=== PATIENT | male | born 1995 | race Two or more races ===

== ENCOUNTER 2025-03-06 18:36 | Inpatient (IN) | payer OTHER, MEDICAID, MEDICARE, SELFPAY ==
[2025-03-06 18:56] VITALS: BP 119/81; PULSE 102; RESP 18; TEMP 36.8; O2SAT 96; BMI 29.8
--- NOTE | 2025-03-06 19:11 | PD.EDNV ---
Nausea/Vomit./Diarrhea-RME/HPI General Chief complaint: Nausea/Vomiting/Diarrhea Stated complaint: WEAKNESS, DIARRHEA X3 DAYS Time Seen by Provider: 03/06/25 18:55 Arrival date/time: 03/06/25 18:36 RME / HPI RME / HPI Narrative: 30-year-old male presents to the ED with complaint of diarrhea for the past 4 days. He is also feeling weakness and fatigue. He is having 6-7 bouts of diarrhea daily, however today he has had none. Mother is concerned about his electrolytes as he has had hypernatremia previously. He denies any fever or chills, nausea or vomiting, upper respiratory complaints, urinary frequency or burning with urination. MD complaint: diarrhea Onset (ago): day(s) (For) Associated Abdominal Pain: No Location of pain: other (None) Radiation: other (None) Consistency: now resolved Exacerbating factors: none Related Data Home Medications ?Medication ?Instructions ?Recorded ?Confirmed famotidine 20 mg tablet (Pepcid) 20 mg PO QDAY GERD #0 tabs 11/11/14 03/18/19 potassium chloride 20 mEq 20 meq PO BID SUPPLEMENT #0 tabs 01/28/15 08/18/24 tablet,extended release(part/cryst) metoprolol tartrate 25 mg tablet 12.5 mg PO QDAY HBP #0 tabs 05/05/15 03/18/19 levetiracetam 1,000 mg tablet 1,000 mg PO BID Seizures #0 tabs 06/07/15 08/18/24 (Keppra) warfarin 3 mg tablet (Coumadin) 3 mg PO DAILY Blood Thinner #0 tabs 10/08/15 08/18/24 allopurinol 300 mg tablet 300 mg PO QDAY #0 tabs 04/11/16 08/18/24 (Zyloprim) atorvastatin 20 mg tablet 20 mg PO QPM 08/18/24 08/18/24 desmopressin 0.1 mg tablet 0.4 mg PO TID 08/18/24 08/18/24 mirtazapine 30 mg tablet 30 mg PO HS 08/18/24 08/18/24 Allergies Allergy/AdvReac Type Severity Reaction Status Date / Time No Known Allergies Allergy Verified 08/17/24 19:19 Course Quality Measures none Orders Category Date Time Status In and Out Catheter X1 Care 03/06/25 20:44 Active CBC Stat Lab 03/06/25 19:28 Completed Comprehensive Metabolic Panel Stat Lab 03/06/25 19:28 Completed Urinalysis Stat Lab 03/06/25 19:13 Ordered Vital Signs Vital signs: Vital Signs Temperature 98.2 F 03/06/25 18:56 Pulse Rate 102 H 03/06/25 18:56 Respiratory Rate 18 03/06/25 18:56 Blood Pressure 119/81 03/06/25 18:56 Pulse Oximetry (%) 96 03/06/25 18:56 Oxygen Delivery Method Room Air 03/06/25 18:56 Nausea/Vomiting/Diarrhea Patient data External records reviewed:: Other (specify) Clinical information provided by:: patient and parent Social determinants that could affect healthcare access:: none How is presenting disease/condition affected by chronic disease/condition?: exacerbated by Evaluation data The following diagnostics were reviewed and interpreted by me:: lab results Lab and/or radiology exams considered but not ordered:: N/A Medications / Prescriptions Medications / Prescriptions considered but not ordered:: N/A Discharge Plan Prescriptions/Referrals Prescriptions/Med Rec: No Action famotidine [Pepcid] 20 MG tablet 20 mg PO QDAY Qty: 0 Patient Comments: TO SUPPRESS GASTRIC ACID SECRETION potassium chloride 20 MEQ tablet,ER particles/crystals 20 meq PO BID Qty: 0 metoprolol tartrate 25 MG tablet 12.5 mg PO QDAY Qty: 0 levetiracetam [Keppra] 1,000 MG tablet 1,000 mg PO BID Qty: 0 warfarin [Coumadin] 3 MG tablet 3 mg PO DAILY Qty: 0 allopurinol [Zyloprim] 300 MG tablet 300 mg PO QDAY Qty: 0 desmopressin 0.1 mg tablet 0.4 mg PO TID Patient Comments: TAKE 4 TABLETS BY MOUTH 3 TIMES A DAY mirtazapine 30 mg tablet 30 mg PO HS atorvastatin 20 mg tablet 20 mg PO QPM Patient Comments: TAKE 1 TABLET BY MOUTH EVERYDAY AT BEDTIME Referrals: No Primary/Family,Physician [Primary Care Provider] - In 1 week Patient/Caregiver Discharge Instructions Print Language: Tamazight
[2025-03-06 19:36] LABS: Basophils % (Auto) 0 % (0-2.5); Eosinophils # (Auto) 0.1 Thou/mm3 (0.0-0.5); Eosinophils % (Auto) 2 % (0-10); Hematocrit 47.2 % (41.0-53.0); Hemoglobin 16.7 g/dL (13.5-16.0); Immature Granulocytes % (Auto) 1 % (0-0); Immature Granulocytes Auto 0.06 Thou/mm3 (0.00-0.00); Lymphocytes % (Auto) 43 % (10-50); Mean Corpuscular HGB Conc 35.4 g/dl (31.0-37.0); Mean Corpuscular Hemoglobin 30.4 pg (25.0-35.0); Mean Corpuscular Volume 86 fL (80-100); Monocytes # (Auto) 0.7 Thou/mm3 (0.0-0.8); Monocytes % (Auto) 8 % (0-12); Neutrophils # (Auto) 4.3 Thou/mm3 (1.8-7.7); Neutrophils % (Auto) 47 % (37-80); Nucleated Red Blood Cell % 0 /100 WBC (0); Platelet Count 174 Thou/mm3 (140-440); RDW Standard Deviation 42.5 fL (35.1-43.9); White Blood Count 9.2 Thou/mm3 (3.8-10.6)
[2025-03-06 19:56] LABS: Alanine Aminotransferase 85 U/L (10-49); Albumin, Serum 4.8 gm/dL (3.5-5.0); Albumin/Globulin Ratio 1.5 (1.2-2.2); Alkaline Phosphatase 80 U/L (46-116); Anion Gap 9 (7-16); Aspartate Amino Transferase 36 U/L (0-34); BUN/Creatinine Ratio 14 Ratio (12-20); Bilirubin,Total 0.6 mg/dL (0.3-1.2); Blood Urea Nitrogen 22 mg/dL (9-23); Carbon Dioxide 21.3 mMol/L (20.0-31.0); Chloride 125 mMol/L (98-107); Creatinine (Component) 1.6 mg/dL (0.6-1.3); Estimated Creatinine Clearance 76.4 mL/min (>60); Globulin 3.2 gm/dL (2.3-3.5); Glucose 97 mg/dL (74-106); Osmolality,Calculated 310 (275-295); Potassium 3.4 mMol/L (3.4-5.1); Sodium 155 mMol/L (136-145); eGFR 58 See Note
[2025-03-06 21:30] VITALS: BP 121/84; O2SAT 98
[2025-03-06 21:32] VITALS: BP 121/84; PULSE 93; RESP 18; TEMP 36.4; O2SAT 98
--- NOTE | 2025-03-06 21:56 | PD.EDADULT ---
ED General RME/HPI General Chief complaint: Nausea/Vomiting/Diarrhea Stated complaint: WEAKNESS, DIARRHEA X3 DAYS Time Seen by Provider: 03/06/25 18:55 Arrival date/time: 03/06/25 18:36 RME / HPI RME / HPI narrative: This patient is a 30-year-old male with past medical history of brain tumor s/p resection complicated with diabetes insipidus on desmopressin, previous PE 3 to 4 years ago on warfarin, Hx of seizures, GERD, hypertension presented to the ED on 03/06/2025 with chief complaint of 4-day history of diarrhea without blood foul-smelling mostly watery in consistency around more than 7-10 bowel movements in a day. He denied any fever/chills, abdominal discomfort, nausea, vomiting, headache or lightheadedness or burning in the urine. Diarrhea is not related with a food intake. He has been not drinking enough water as well. He usually have a lot of urine output however has been having decreased urine output lately. Yesterday, he saw his primary care doctor who started her on azithromycin which he took 2 pills. However due to uncontrolled mucus stools patient came to the ER with her mother on the bedside. He reported to feel tired and fatigued out today. Vitals showed stable blood pressure and he was afebrile saturating well on room air. Labs were significant for erythrocytosis hemoglobin 16.7 stable white count. CHEM panel revealed chronic hypernatremia with sodium 155, chloride 125 mild hypokalemia potassium 3.4, mild STACEY BUN 22 creatinine 1.6 GFR 58 with baseline creatinine 1.2 from September 2024. Osmolality 310. Mildly elevated liver enzymes AST 36 and ALT 85. PMH: History of brain tumor, seizures, hypertension, GERD, PE SX: Tumor resection, thrombectomy SH: Denies smoking, drinking alcohol. No history of illicit drug use Allergies: NKDA Home medications: Keppra 1 g twice daily, allopurinol 300 mg once daily, desmopressin 0.4 mg 3 times a day, potassium 20 mEq, atorvastatin 20 mg and warfarin 3 mg daily Patient's free water deficit is around 3.1 L considering goal of sodium 147 mEq in first 24 hours. We ordered 1 L bolus of LR, ordered CT abdomen pelvis without contrast to evaluate abdominal pathology and urine electrolytes with strict LUCI's. Will perform sodium checks every 4 hourly with next check at 23:30. Patient is likely has acute on chronic hypernatremia and hyperchloremia likely related to dehydration due to possible GI infection in the setting of central diabetes insipidus.Hospitalist team was called to admit the patient for acute on ch hypernatremia. MD complaint: Loose stools/diarrhea Onset (ago): day(s) (4) Exacerbating factors: none Associated symptoms: malaise and weakness Treatments prior to arrival: other (Azithromycin) Related Data Home Medications ?Medication ?Instructions ?Recorded ?Confirmed famotidine 20 mg tablet (Pepcid) 20 mg PO QDAY GERD #0 tabs 11/11/14 03/18/19 potassium chloride 20 mEq 20 meq PO BID SUPPLEMENT #0 tabs 01/28/15 08/18/24 tablet,extended release(part/cryst) metoprolol tartrate 25 mg tablet 12.5 mg PO QDAY HBP #0 tabs 05/05/15 03/18/19 levetiracetam 1,000 mg tablet 1,000 mg PO BID Seizures #0 tabs 06/07/15 08/18/24 (Keppra) warfarin 3 mg tablet (Coumadin) 3 mg PO DAILY Blood Thinner #0 tabs 10/08/15 08/18/24 allopurinol 300 mg tablet 300 mg PO QDAY #0 tabs 04/11/16 08/18/24 (Zyloprim) atorvastatin 20 mg tablet 20 mg PO QPM 08/18/24 08/18/24 desmopressin 0.1 mg tablet 0.4 mg PO TID 08/18/24 08/18/24 mirtazapine 30 mg tablet 30 mg PO HS 08/18/24 08/18/24 Allergies Allergy/AdvReac Type Severity Reaction Status Date / Time No Known Allergies Allergy Verified 03/06/25 22:31 Review of Systems Review of Systems Systems Reviewed: All systems reviewed, normal except as documented Past Medical History Past Medical History NEUROLOGIC: Positive Neurological Disorders and Brain Tumor CARDIAC: Positive Hypercholesterolemia and Hypertension; Negative Cardiac Disorders or Congestive Heart Failure RESPIRATORY: Negative Respiratory Disorders, Chronic Obstructive Pulmonary Disease (COPD) or Asthma GENITOURINARY: Positive Renal Disease ENDOCRINE: Positive Endocrine Disorders and Diabetes Mellitus Type 2 (diabetes insipidus); Negative Diabetes Mellitus Type 1 HEMATOLOGIC: Negative Sickle Cell Disease OTHER HISTORY: Negative Blood Transfusions Surgical History OTHER SURGICAL HX: Brain Sx Social History SMOKING STATUS: Never smoker ED Exam Narrative Physical exam: GENERAL APPEARANCE: AxOx4, obese male in no acute distress. HEENT: NC, AT. Dry mucous membrane. EOMI, clear conjunctiva, oropharynx clear. NECK: Supple without lymphadenopathy. No stiffness or restricted ROM. HEART: Regular rate and regular rhythm, normal S1/S2, no m/r/g LUNGS: CTAB, moving air well. No crackles or wheezes are heard. ABDOMEN: Soft, nontender, nondistended with good bowel sounds heard. BACK: No CVAT, no obvious deformity. EXTREMITIES: Without cyanosis, clubbing or edema. NEUROLOGICAL: Grossly nonfocal. Alert and oriented, moving all 4 extremities. CN not formally tested but appear grossly intact. Observed to ambulate with normal gait. Skin: Warm and dry without any rash. Psych: Appropriate mood and affect Course Quality Measures none Orders Category Date Time Status COVID-19 Screening Questionnaire NOW Care 03/06/25 22:27 Active Decision to Admit X1 Care 03/06/25 22:27 Active In and Out Catheter X1 Care 03/06/25 20:44 Active Strict Intake and Output Routine Care 03/06/25 22:[address] abdomen pelvis wo con Stat Exams 03/06/25 22:12 Ordered CBC Stat Lab 03/06/25 19:28 Completed Comprehensive Metabolic Panel Stat Lab 03/06/25 19:28 Completed Electrolytes, Urine Random Stat Lab 03/06/25 22:18 Ordered INR [Prothrombin Time with INR] Stat Lab 03/06/25 22:35 Ordered Mag [Magnesium] Routine Lab 03/06/25 22:18 Ordered PTT [Partial Thromboplastin Time] Stat Lab 03/06/25 22:35 Ordered Sodium Q4H Lab 03/06/25 23:30 Ordered Sodium Q4H Lab 03/07/25 03:30 Ordered Sodium Q4H Lab 03/07/25 07:30 Ordered Sodium Q4H Lab 03/07/25 11:30 Ordered Sodium Q4H Lab 03/07/25 15:30 Ordered Urinalysis Stat Lab 03/06/25 19:13 Ordered Potassium Chloride [K-Dur] Med 03/06/25 22:18 Discontinued 40 meq PO X1 ONE Ringers Lactated 1000 ml [Lactated Ringers] 1,000 ml Med 03/06/25 22:15 Active IV 999 mls/hr Vital Signs Vital signs: Vital Signs Temperature 98.2 F 03/06/25 18:56 Pulse Rate 102 H 03/06/25 18:56 Respiratory Rate 18 03/06/25 18:56 Blood Pressure 119/81 03/06/25 18:56 Pulse Oximetry (%) 96 03/06/25 18:56 Oxygen Delivery Method Room Air 03/06/25 18:56 Discharge Plan Plan Patient Disposition: Admit Acute Care w/in Hospital Prescriptions/Referrals Prescriptions/Med Rec: No Action famotidine [Pepcid] 20 MG tablet 20 mg PO QDAY Qty: 0 Patient Comments: TO SUPPRESS GASTRIC ACID SECRETION potassium chloride 20 MEQ tablet,ER particles/crystals 20 meq PO BID Qty: 0 metoprolol tartrate 25 MG tablet 12.5 mg PO QDAY Qty: 0 levetiracetam [Keppra] 1,000 MG tablet 1,000 mg PO BID Qty: 0 warfarin [Coumadin] 3 MG tablet 3 mg PO DAILY Qty: 0 allopurinol [Zyloprim] 300 MG tablet 300 mg PO QDAY Qty: 0 desmopressin 0.1 mg tablet 0.4 mg PO TID Patient Comments: TAKE 4 TABLETS BY MOUTH 3 TIMES A DAY mirtazapine 30 mg tablet 30 mg PO HS atorvastatin 20 mg tablet 20 mg PO QPM Patient Comments: TAKE 1 TABLET BY MOUTH EVERYDAY AT BEDTIME Referrals: No Primary/Family,Physician [Primary Care Provider] - In 1 week Problem List Clinical Impression: Diarrhea, Acute renal insufficiency, 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
--- NOTE | 2025-03-06 22:12 | XR_ITS ---
Examination: CT abdomen and pelvis without contrast. Coronal 3-D reconstructions. Sagittal 2-D reconstructions. Date and time of exam:March 06, 2020 5:11 PM Comparison August 17, 2024 INDICATIONS: Diarrhea abdominal pain beginning 3 days ago CTDI: vol (mGy): 19.66 DLP: (mGycm): 598 Technique: Axial images of the abdomen have been obtained, 3 mm slice thickness Intravenous contrast material has not been administered. Low dose protocols were performed. One or more of the following dose reduction techniques were used; automated exposure control, adjustment of the mA and/or KV according to patient size, use of iterative reconstruction technique. Findings: No focal liver or splenic lesions Absent gallbladder No pancreatic or adrenal mass No renal or ureteral calculi, no hydronephrosis IVC filter is satisfactory position Aorta normal size Normal appendix No bowel obstruction No diverticulitis Normal seminal vesicles Normal prostate Osseous structures intact IMPRESSION: No acute process in the abdomen or pelvis
[2025-03-06 22:27] VITALS: BP 107/88; PULSE 95; RESP 18; TEMP 36.4; O2SAT 99
[2025-03-06] MEDS: POTASSIUM CHLORIDE 20 mEq TABCR 40 MEQ PO (22:31)
[2025-03-06] MEDS: RINGERS LACTATED 1000 ML 1,000 ML 999 ML IV (22:31)
[2025-03-06 22:37] LABS: Collection Type, Urine Clean Catch
[2025-03-06 22:50] LABS: Bilirubin,Urine Negative (Negative); Blood,Urine Trace (Negative); Calcium Oxalate Crystals,Urine Rare; Clarity,Urine Clear (Clear/Hazy); Color,Urine Yellow (Lt Yel-Yel); Glucose, Urine Negative (Negative); Ketones,Urine Negative (Negative); Leukocyte Esterase,Urine Negative (Negative); Nitrite,Urine Negative (Negative); Protein,Urine 1+ (Neg - Trace); RBC,Urine 7 /hpf (0-3); Specific Gravity,Urine 1.046 (1.001-1.035); Squamous Epithelial Cell,Urine 1 /hpf (0-5); Urobilinogen,Urine Negative mg/dL (0.0-1.0); WBC,Urine 2 /hpf (0-5)
[2025-03-06 23:24] LABS: Magnesium 1.7 mg/dL (1.6-2.6)
[2025-03-06 23:26] LABS: Potassium,Urine Random 156 mMol/L (12-62); Sodium,Urine Random < 15.0 mMol/L (20.0-110.0)
[2025-03-06 23:39] LABS: INR 3.9 (0.9-1.3); Partial Thromboplastin Time 40.6 Seconds (22.0-36.0)
--- NOTE | 2025-03-06 23:41 | ESHP_ITS ---
Documentation for date of: 03/06/25 [facility] History of Present Illness History of present illness: Mr Simon is a 30-year-old male with past medical history of brain tumor s/p resection complicated with diabetes insipidus on desmopressin, previous PE 3 to 4 years ago on warfarin and status post IVC filter, Hx of seizures, GERD, hypertension presented to the ED on 03/06/2025 with chief complaint of 4-day history of diarrhea without blood foul-smelling mostly watery in consistency around more than 7-10 bowel movements in a day. He denied any fever/chills, abdominal discomfort, nausea, vomiting, headache or lightheadedness or burning in the urine. Diarrhea is not related with a food intake. He has been not drinking enough water as well. He usually have a lot of urine output however has been having decreased urine output lately. Yesterday, he saw his primary care doctor who started her on azithromycin which he took 2 pills. However due to uncontrolled mucus stools patient came to the ER with her mother on the bedside. He reported to feel tired and fatigued out today. Patient denies any other complaints of chest pain palpitations shortness of breath and headache Vitals showed stable blood pressure and he was afebrile saturating well on room air. Labs were significant for erythrocytosis hemoglobin 16.7 stable white count. CHEM panel revealed chronic hypernatremia with sodium 155, chloride 125 mild hypokalemia potassium 3.4, mild STACEY BUN 22 creatinine 1.6 GFR 58 with baseline creatinine 1.2 from September 2024. Osmolality 310. Mildly elevated liver enzymes AST 36 and ALT 85. Review of Systems Review of Systems Narrative Review of Systems: ROS: -CONSTITUTIONAL: Denies weight loss, fever and chills. -HEENT: Denies changes in vision and hearing. -RESPIRATORY: Denies SOB and cough. -CV: Denies palpitations and Chest Pain. -GI: Denies abdominal pain, nausea, vomiting,constipation and positive for diarrhea. -: Denies dysuria and urinary frequency. -MSK: Denies myalgia and joint pain. -SKIN: Denies rash and pruritus. -NEUROLOGICAL: Denies headache and syncope. -PSYCHIATRIC: Denies recent changes in mood. Denies anxiety and depression. Past Medical History Past Medical History Comments PMH COMMENT: PMH: History of brain tumor, seizures, hypertension, GERD, PE SX: Tumor resection, thrombectomy SH: Denies smoking, drinking alcohol. No history of illicit drug use Allergies: NKDA Home medications: Keppra 1 g twice daily, allopurinol 300 mg once daily, desmopressin 0.4 mg 3 times a day, potassium 20 mEq, atorvastatin 20 mg and warfarin 3 mg daily Exam Vital Signs Temp Pulse Resp BP Pulse Ox O2 Del Method 97.6 F 95 18 107/88 H 99 Room Air 03/06/25 22:27 03/06/25 22:27 03/06/25 22:27 03/06/25 22:27 03/06/25 22:27 03/06/25 22:27 Results: Labs 03/06/25 19:28 03/07/25 04:17 Labs: Short CBC 03/06/25 Range/Units 19:28 WBC 9.2 (3.8-10.6) Thou/mm3 Hgb 16.7 H (13.5-16.0) g/dL Hct 47.2 (41.0-53.0) % Plt Count 174 (140-440) Thou/mm3 BMP 03/06/25 19:28 Sodium 155 H Potassium 3.4 Chloride 125 H* Carbon Dioxide 21.3 BUN 22 Creatinine 1.6 H Glucose 97 Calcium 9.0 Liver Function 03/06/25 Range/Units 19:28 Total Bilirubin 0.6 (0.3-1.2) mg/dL AST 36 H (0-34) U/L ALT 85 H (10-49) U/L Alkaline Phosphatase 80 (46-116) U/L Albumin 4.8 (3.5-5.0) gm/dL Urine 03/06/25 Range/Units 22:30 Urine Color Yellow (Lt Yel-Yel) Urine Clarity Clear (Clear/Hazy) Urine pH 6.0 (5.0-7.0) Ur Specific [place] 1.046 H (1.001-1.035) Urine Protein 1+ A (Neg - Trace) Urine Glucose (UA) Negative (Negative) Quality Measures Quality Measures none Medications Home Medications and Allergies Home Medications ?Medication ?Instructions ?Recorded ?Confirmed ?Type famotidine 20 mg tablet (Pepcid) 20 mg PO QDAY GERD #0 tabs 11/11/14 03/18/19 History potassium chloride 20 mEq 20 meq PO BID SUPPLEMENT #0 tabs 01/28/15 08/18/24 History tablet,extended release(part/cryst) metoprolol tartrate 25 mg tablet 12.5 mg PO QDAY HBP # 0 tabs 05/05/15 03/18/19 History levetiracetam 1,000 mg tablet 1,000 mg PO BID Seizures #0 tabs 06/07/15 08/18/24 History (Keppra) warfarin 3 mg tablet (Coumadin) 3 mg PO DAILY Blood Th inner #0 tabs 10/08/15 08/18/24 History allopurinol 300 mg tablet 300 mg PO QDAY #0 tabs 04/1108/18/24 History (Zyloprim) atorvastatin 20 mg tablet 20 mg PO QPM 08/18/24 History desmopressin 0.1 mg tablet 0.4 mg PO TID 08/18/2408/04 History mirtazapine 30 mg tablet 30 mg PO HS 08/18/24 4 History Allergies Allergy/AdvReac Type Severity Reaction Status Date / Time No Known Allergies Allergy Verified 03/06/25 22:31 Visit Medications Acetaminophen (Acetaminophen 325 Mg Tablet) 650 mg PO Q6H PRN PRN Reason: Pain (1-3) & Fever >101.5 Stop: 04/05/25 23:19 Allopurinol (Allopurinol 100 Mg Tablet) 300 mg PO QDAY BHARAT Stop: 04/06/25 08:59 Atorvastatin Calcium (Atorvastatin Calcium 20 Mg Tablet) 20 mg PO HS BHARAT Stop: 04/06/25 20:59 Levetiracetam (Levetiracetam 250 Mg Tablet) 1,000 mg PO BID BHARAT Stop: 04/05/25 23:29 Mirtazapine (Mirtazapine 15 Mg Tablet) 30 mg PO HS BHARAT Stop: 04/06/25 20:59 Non-Formulary Medication (Desmopressin) 0.4 mg PO TID BHARAT Stop: 04/06/25 05:59 Ondansetron HCl (Ondansetron Inj 2 Mg/Ml Inj 2 Ml) 4 mg IV Q6H PRN; Protocol PRN Reason: NAUSEA OR VOMITING Stop: 04/05/25 23:19 Sennosides (Senna Tablet) 1 tab PO QDAY PRN; Protocol PRN Reason: constipation Stop: 04/05/25 23:19 Warfarin Sodium (Warfarin 1 Mg Tablet) 3 mg PO QDAY@1200 BHARAT Stop: 03/21/25 11:59 Discontinued Medications Heparin Sodium (Porcine) (Heparin Sod Inj 5000 Unit/Ml Vial) 5,000 unit SC Q12H [facility] Stop: 03/20/25 23:29 Lactated Ringer's (Lactated Ringers) 1,000 mls @ 999 mls/hr IV .Q1H1M ONE Stop: 03/06/25 23:15 Last Admin: 03/06/25 22:31 Dose: 999 mls/hr Potassium Chloride (Potassium Chloride 20 Meq Tabcr) 40 meq PO X1 ONE Stop: 03/06/25 22:19 Last Admin: 03/06/25 22:31 Dose: 40 meq Assessment & Plan Plan Assessment and plan: Summary: Mr Simon is a 30-year-old male with past medical history of brain tumor s/p resection complicated with diabetes insipidus on desmopressin, previous PE 3 to 4 years ago on warfarin and status post IVC filter, Hx of seizures, GERD, hypertension presented to the ED on 03/06/2025 with chief complaint of 4-day history of diarrhea without blood foul-smelling mostly watery in consistency around more than 7-10 bowel movements in a day. Patient admitted to hospital for further management of hyponatremia. #Hypovolemic hypernatremia #Acute kidney injury #Diabetes insipidus on desmopressin Patient has a history of diabetes insipidus, on desmopressin. Presented with hypernatremia sodium 155, chloride 125 on presentation, free water deficit total 6.1 L, goal correction of 3.9 L in 24 hours with goal sodium of 145. Patient was given 1 L LR bolus in ED. On presentation BUN 22, creatinine 1.6, GFR 58 does have mild STACEY. Plan: - D5W at 100 cc/h - Goal sodium correction 8-10 in 24 hours - Follow sodium every 4 hours - Resumed home dose desmopressin 0.4 mg 3 times daily - Nephrology consulted, appreciate recommendations - Follow urine electrolytes #Diarrhea Patient complains of diarrhea since the last 4 days. Was prescribed azithromycin by PCP. CT abdomen pelvis unremarkable Plan: - Follow stool culture - Stool WBC, fecal calprotectin ordered - Consider ordering C. difficile if patient has foul-smelling diarrhea #Transaminitis AST 36, ALT 85 - Follow CMP in a.m. #Polycythemia Hemoglobin 16.7 on presentation, likely secondary to dehydration, follow CBC in a.m. #Supratherapeutic INR #Pulmonary embolism w/ IVC filter, by history INR 3.9 on presentation -Hold home medication, Coumadin 3 mg daily -Follow coagulation panel daily -Goal INR between 2-3 ideally 2.5 -Consider removal of IVC filter post discharge. # Brain tumor s/p resection # CAD, by history # Gout, by history # Seizures, by history Patient's neurologist Dr. Narayanan -Restart home medication of Atorvastatin 20 mg HS -Resumed home dose medication of keppra and Mirtazapine -Resumed home dose allopurinol -Pending med reconciliation DVT prophylaxis: SCDs, supratherapeutic resume warfarin when INR stable GI prophylaxis: Not indicated Diet: Renal diet Lines: Peripheral IV Code status: Full code Case discussed with Attending Dr. Gant. Bronwyn Ramos PGY1 Disclaimer: This note was dictated by speech recognition. Minor errors in medical records technician may be present due to voice recognition software. Attending Provider Attestation/Addendum I have examined the patient, reviewed labs and imaging findings, discussed the case with the resident(s), and reviewed entered orders. I agree with the plan of care as outlined in this note, with these additional summaries/recommendations: 30-year-old male with past medical history brain tumor status postresection with subsequent central DI presents to the ED with chief complaint of 4 days of diarrhea with associated nausea and vomiting. Workup in ER showed sodium 156, osmolality of 310 and STACEY. Will admit for further workup for the hypernatremia and restart patient's home medications. Mitchel Gant MD
[2025-03-07] VITALS (7 sets, daily range): BP systolic 104–127; BP diastolic 78–95; PULSE 62–91; RESP 12–21; TEMP 35.9–36.7; O2SAT 97–100
[2025-03-07 00:03] LABS: Prothrombin Time 38.3 Seconds (9.0-12.2)
[2025-03-07] MEDS: levETIRAcetam 250 MG TABLET 1000 MG PO ×3 (00:12→21:00)
[2025-03-07] MEDS: DEXTROSE 5%-WATER 1,000 ML 100 ML IV (01:42)
[2025-03-07 01:44] LABS: Anion Gap 11 (7-16); BUN/Creatinine Ratio 17 Ratio (12-20); Blood Urea Nitrogen 22 mg/dL (9-23); Calcium 7.9 mg/dL (8.3-10.6); Carbon Dioxide 22.7 mMol/L (20.0-31.0); Chloride 124 mMol/L (98-107); Creatinine (Component) 1.3 mg/dL (0.6-1.3); Estimated Creatinine Clearance 94.1 mL/min (>60); Glucose 91 mg/dL (74-106); Osmolality,Calculated 316 (275-295); Potassium 3.6 mMol/L (3.4-5.1); Sodium 158 mMol/L (136-145); eGFR > 60 See Note
[2025-03-07 05:23] LABS: Sodium 156 mMol/L (136-145)
[2025-03-07 06:31] LABS: Basophils % (Auto) 0 % (0-2.5); Eosinophils # (Auto) 0.1 Thou/mm3 (0.0-0.5); Eosinophils % (Auto) 2 % (0-10); Hematocrit 39.2 % (41.0-53.0); Hemoglobin 13.8 g/dL (13.5-16.0); Immature Granulocytes % (Auto) 1 % (0-0); Immature Granulocytes Auto 0.06 Thou/mm3 (0.00-0.00); Lymphocytes # (Auto) 2.9 Thou/mm3 (1.0-4.8); Lymphocytes % (Auto) 36 % (10-50); Mean Corpuscular HGB Conc 35.2 g/dl (31.0-37.0); Mean Corpuscular Hemoglobin 30.1 pg (25.0-35.0); Mean Corpuscular Volume 86 fL (80-100); Monocytes # (Auto) 0.6 Thou/mm3 (0.0-0.8); Monocytes % (Auto) 8 % (0-12); Neutrophils # (Auto) 4.4 Thou/mm3 (1.8-7.7); Neutrophils % (Auto) 55 % (37-80); Nucleated Red Blood Cell % 0 /100 WBC (0); Platelet Count 142 Thou/mm3 (140-440); Red Blood Count 4.58 Miln/mm3 (4.50-5.90); White Blood Count 8.2 Thou/mm3 (3.8-10.6)
[2025-03-07 06:53] LABS: INR 4.1 (0.9-1.3)
[2025-03-07 06:54] LABS: Alanine Aminotransferase 68 U/L (10-49); Albumin, Serum 3.7 gm/dL (3.5-5.0); Albumin/Globulin Ratio 1.5 (1.2-2.2); Alkaline Phosphatase 63 U/L (46-116); Anion Gap 10 (7-16); Aspartate Amino Transferase 28 U/L (0-34); BUN/Creatinine Ratio 15 Ratio (12-20); Bilirubin,Total 0.9 mg/dL (0.3-1.2); Blood Urea Nitrogen 20 mg/dL (9-23); Calcium 7.7 mg/dL (8.3-10.6); Calcium (Corrected) 7.9 mg/dL (8.5-10.1); Carbon Dioxide 22.8 mMol/L (20.0-31.0); Cardiac Risk Estimate 4.1 RATIO (4.0-6.7); Chloride 122 mMol/L (98-107); Cholesterol 90 mg/dL (132-200); Creatinine (Component) 1.3 mg/dL (0.6-1.3); Estimated Creatinine Clearance 94.1 mL/min (>60); Globulin 2.5 gm/dL (2.3-3.5); Glucose 123 mg/dL (74-106); HDL Cholesterol 22 mg/dL (40-60); LDL Cholesterol,Calculated 44 mg/dL (0-130); Magnesium 1.6 mg/dL (1.6-2.6); Osmolality,Calculated 310 (275-295); Phosphorous 2.9 mg/dL (2.4-5.1); Potassium 3.5 mMol/L (3.4-5.1); Sodium 155 mMol/L (136-145); Thyroid Stimulating Hormone 2.77 uIU/mL (0.55-4.78); Total Protein 6.2 gm/dL (5.7-8.2); Triglycerides 121 mg/dL (30-150); eGFR > 60 See Note
[2025-03-07 06:58] LABS: Prothrombin Time 40.8 Seconds (9.0-12.2)
[2025-03-07] MEDS: DEXTROSE 5%-WATER 1,000 ML 200 ML IV ×3 (07:00→20:59)
--- NOTE | 2025-03-07 07:30 | PC.NURSE ---
Report received from pm nurse patient to er with c/o abd. pain and diarrhea x 5 days per patient. Currently patient denies pain at this time, last bm was yesterday. Skin is warm dry and pink. Per father at bedside states patient has h/o brain tumor and is forgetful at times. Patient admitted to floor for elevated sodium, awaiting bed on floor. Patient has no other needs at this time.
--- NOTE | 2025-03-07 07:40 | PC.NURSE ---
Pt sleeping most of the nigh . was up twice ambulated to BR to void. Mo diarrhea since arival. Pt has noemi in no distress since arrival.
--- NOTE | 2025-03-07 07:41 | PC.NURSE ---
Report was given to Gretta SHANKAR. She will notify ER when rm is ready.
--- NOTE | 2025-03-07 08:00 | PC.OT ---
Called pharmacist regarding desmopressin due at 0600am, not in our pyxis, per pharmacist, patient will have to take own medication, will come to er to verify med to give patient home medication.
[2025-03-07 08:48] LABS: Sodium 154 mMol/L (136-145)
--- NOTE | 2025-03-07 09:24 | PC.NURSE ---
Called pharmacists to bring routine medication to er, not in our pyxis.
[2025-03-07] MEDS: allopurinoL 100 MG TABLET 300 MG PO (09:52)
[2025-03-07] MEDS: DESMOPRESSIN ACETATE 0.1 MG TABLET PO ×3 (09:52→21:01)
[2025-03-07] MEDS: CALCIUM CARBONATE 600 MG TABLET PO (09:53)
[2025-03-07] MEDS: Magnesium Sulfate 4 GM Ivpb 4 GM/50 ML BAG IV (09:53)
--- NOTE | 2025-03-07 11:21 | ESPR_ITS ---
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 Patient seen and assessed in hospital bed denies having any concerning symptoms such as chest pain, shortness of breath, abdominal pain, dizziness or new headaches. Patient has been having diarrhea for about 4 days including 3-4 episodes of bowel movements, stool studies pending including C. difficile. Patient's acute kidney injury is improving; moreover, patient started on low- sodium diet and calcium supplementation. Will continue monitor for any acute changes. Exam Vital Signs Temp Pulse Resp BP Pulse Ox O2 Del Method 98.0 F 91 18 116/89 H 97 Room Air 03/07/25 08:21 03/07/25 08:21 03/07/25 08:21 03/07/25 08:21 03/07/25 08:21 03/07/25 08:21 Narrative Exam Physical Exam: GENERAL: Awake, answering questions appropriately, appears stated age, overweight HEENT: NC/AT. Moist mucosa. PERRLA/EOMI. CARDIO: Heart RRR, no obvious murmurs, no JVD. PULM: No coughing or visible SOB. Lungs CTA B/L. GI: Abdomen soft, NT/ND, +BS. SKIN/MSK/EXT: No wounds/discoloration/rashes/edema/amputations. +Pedal pulses present B/L. NEURO: Oriented x3, Moves extremities x4, no focal neurologic deficits noted. Objective Labs 03/07/25 05:19 03/07/25 08:00 Labs: Laboratory Results - last 24 hr 03/06/25 03/06/25 03/06/25 00:15 19:28 22:30 WBC 9.2 RBC 5.50 Hgb 16.7 H Hct 47.2 MCV 86 MCH 30.4 MCHC 35.4 RDW Std Deviation 42.5 Plt Count 174 Neut % (Auto) 47 Lymph % (Auto) 43 [place] % (Auto) 8 Eos % (Auto) 2 Baso % (Auto) 0 Neut # (Auto) 4.3 Lymph # (Auto) 4.0 [place] # (Auto) 0.7 Eos # (Auto) 0.1 Baso # (Auto) 0.0 Immature Gran # (Auto) 0.06 H Absolute Nucleated RBC 0.00 Immature Gran % 1 H Nucleated RBC % 0 PT INR APTT Sodium 158 H 155 H Potassium 3.6 3.4 Chloride 124 H* 125 H* Carbon Dioxide 22.7 21.3 Anion Gap 11 9 BUN 22 22 Creatinine 1.3 1.6 H Estim Creat Clear Calc 94.1 76.4 eGFR > 60 58 L BUN/Creatinine Ratio 17 14 Glucose 91 97 Calculated Osmolality 316 H 310 H Calcium 7.9 L 9.0 Corrected Calcium 9.0 Phosphorus Magnesium Total Bilirubin 0.6 AST 36 H ALT 85 H Alkaline Phosphatase 80 Total Protein 8.0 Albumin 4.8 Globulin 3.2 Albumin/Globulin Ratio 1.5 Triglycerides Cholesterol LDL Cholesterol, Calc HDL Cholesterol Cholesterol/HDL Ratio TSH Ur Collection Type Clean Catch Urine Color Yellow Urine Clarity Clear Urine pH 6.0 Ur Specific [place] 1.046 H Urine Protein 1+ A Urine Glucose (UA) Negative Urine Ketones Negative Urine Blood Trace Urine Nitrite Negative Urine Bilirubin Negative Urine Urobilinogen (Auto) Negative Ur Leukocyte Esterase Negative Urine RBC 7 H Urine WBC 2 Ur Squamous Epith Cells 1 Calcium Oxalate Crystal Rare Urine Bacteria None Ur Random Sodium < 15.0 L Ur Random Potassium 156 H Ur Random Chloride 159.0 H 03/06/25 03/07/25 03/07/25 22:48 04:17 05:19 WBC 8.2 RBC 4.58 Hgb 13.8 D Hct 39.2 L MCV 86 MCH 30.1 MCHC 35.2 RDW Std Deviation 42.0 Plt Count 142 D Neut % (Auto) 55 Lymph % (Auto) 36 [place] % (Auto) 8 Eos % (Auto) 2 Baso % (Auto) 0 Neut # (Auto) 4.4 Lymph # (Auto) 2.9 [place] # (Auto) 0.6 Eos # (Auto) 0.1 Baso # (Auto) 0.0 Immature Gran # (Auto) 0.06 H Absolute Nucleated RBC 0.00 Immature Gran % 1 H Nucleated RBC % 0 PT 38.3 H* 40.8 H* INR 3.9 H 4.1 H* APTT 40.6 H Sodium 156 H 155 H Potassium 3.5 Chloride 122 H* Carbon Dioxide 22.8 Anion Gap 10 BUN 20 Creatinine 1.3 Estim Creat Clear Calc 94.1 eGFR > 60 BUN/Creatinine Ratio 15 Glucose 123 H Calculated Osmolality 310 H Calcium 7.7 L Corrected Calcium 7.9 L Phosphorus 2.9 Magnesium 1.7 1.6 Total Bilirubin 0.9 AST 28 ALT 68 H Alkaline Phosphatase 63 D Total Protein 6.2 Albumin 3.7 D Globulin 2.5 Albumin/Globulin Ratio 1.5 Triglycerides 121 Cholesterol 90 L LDL Cholesterol, Calc 44 HDL Cholesterol 22 L Cholesterol/HDL Ratio 4.1 TSH 2.77 Ur Collection Type Urine Color Urine Clarity Urine pH Ur Specific [place] Urine Protein Urine Glucose (UA) Urine Ketones Urine Blood Urine Nitrite Urine Bilirubin Urine Urobilinogen (Auto) Ur Leukocyte Esterase Urine RBC Urine WBC Ur Squamous Epith Cells Calcium Oxalate Crystal Urine Bacteria Ur Random Sodium Ur Random Potassium Ur Random Chloride 03/07/25 08:00 WBC RBC Hgb Hct MCV MCH MCHC RDW Std Deviation Plt Count Neut % (Auto) Lymph % (Auto) [place] % (Auto) Eos % (Auto) Baso % (Auto) Neut # (Auto) Lymph # (Auto) [place] # (Auto) Eos # (Auto) Baso # (Auto) Immature Gran # (Auto) Absolute Nucleated RBC Immature Gran % Nucleated RBC % PT INR APTT Sodium 154 H Potassium Chloride Carbon Dioxide Anion Gap BUN Creatinine Estim Creat Clear Calc eGFR BUN/Creatinine Ratio Glucose Calculated Osmolality Calcium Corrected Calcium Phosphorus Magnesium Total Bilirubin AST ALT Alkaline Phosphatase Total Protein Albumin Globulin Albumin/Globulin Ratio Triglycerides Cholesterol LDL Cholesterol, Calc HDL Cholesterol Cholesterol/HDL Ratio TSH Ur Collection Type Urine Color Urine Clarity Urine pH Ur Specific [place] Urine Protein Urine Glucose (UA) Urine Ketones Urine Blood Urine Nitrite Urine Bilirubin Urine Urobilinogen (Auto) Ur Leukocyte Esterase Urine RBC Urine WBC Ur Squamous Epith Cells Calcium Oxalate Crystal Urine Bacteria Ur Random Sodium Ur Random Potassium Ur Random Chloride Quality Measures Quality Measures none Assessment & Plan Assessment Current Active Medications: Generic Name Dose Route Start Last Admin Trade Name Freq PRN Reason Stop Dose Admin Acetaminophen 650 mg 03/06/25 23:20 Acetaminophen 325 Mg Tablet PO 04/05/25 23:19 Q6H PRN Pain (1-3) & Fever >101.5 Allopurinol 300 mg 03/07/25 09:00 03/07/25 09:52 Allopurinol 100 Mg Tablet PO 04/06/25 08:59 300 mg QDAY BHARAT Administration Atorvastatin Calcium 20 mg 03/07/25 21:00 Atorvastatin Calcium 20 Mg Tablet PO 04/06/25 20:59 HS BHARAT Calcium Carbonate 600 mg 03/07/25 09:00 03/07/25 09:53 Calcium Carbonate 600 Mg Tablet PO 04/06/25 08:59 600 mg QDAY BHARAT Administration Desmopressin Acetate 0 ea 03/07/25 09:45 03/07/25 09:52 0.1 Mg Tablet PO 04/06/25 09:44 0.4 tablet TID BHARAT Administration Dextrose 1,000 mls @ 200 mls/hr 03/07/25 02:21 03/07/25 09:37 D5w IV 04/06/25 02:20 200 mls/hr .Q5H BHARAT Administration Magnesium Sulfate 4 gm in 50 mls @ 12.5 mls/hr 03/07/25 08:48 03/07/25 09:53 Magnesium Sulfate Ivpb IV 03/07/25 12:47 12.5 mls/hr X1 ONE Administration Levetiracetam 1,000 mg 03/06/25 23:30 03/07/25 09:25 Levetiracetam 250 Mg Tablet PO 04/05/25 23:29 1,000 mg BID BHARAT Administration Mirtazapine 30 mg 03/07/25 21:00 Mirtazapine 15 Mg Tablet PO 04/06/25 20:59 HS BHARAT Ondansetron HCl 4 mg 03/06/25 23:20 Ondansetron Inj 2 Mg/Ml Inj 2 Ml IV 04/05/25 23:19 Q6H PRN NAUSEA OR VOMITING Protocol Sennosides 1 tab 03/06/25 23:20 Senna Tablet PO 04/05/25 23:19 QDAY PRN constipation Protocol Plan 30-year-old male with past medical history of brain tumor s/p resection complicated with diabetes insipidus on desmopressin, previous PE 3 to 4 years ago on warfarin and status post IVC filter, Hx of seizures, GERD, hypertension presented to the ED on 03/06/2025 with chief complaint of 4-day history of diarrhea without blood foul-smelling mostly watery in consistency around more than 7-10 bowel movements in a day. Patient admitted to hospital for further management of hyponatremia. #Hypovolemic hypernatremia #Acute kidney injury #Diabetes insipidus on desmopressin Patient has a history of diabetes insipidus, on desmopressin. Presented with hypernatremia sodium 155, chloride 125 on presentation, free water deficit total 6.1 L, goal correction of 3.9 L in 24 hours with goal sodium of 145. Patient was given 1 L LR bolus in ED. On presentation BUN 22, creatinine 1.6, GFR 58 does have mild STACEY. Urine electrolyte studies show extrarenal loss likely secondary to diarrhea as urine sodium is less than 15mmol/L Plan: Continue D5W at 200 cc/h Sodium every 4 hours Continue home dose desmopressin 0.4 mg 3 times daily Nephrology consulted, appreciate recommendations Low-sodium diet #Diarrhea Patient complains of diarrhea since the last 4 days. Was prescribed azithromycin by PCP; possibly for traveler's diarrhea CT abdomen pelvis unremarkable Plan: Follow stool culture Follow-up on stool WBC, fecal calprotectin Follow-up on C. difficile PCR #Elevated liver enzymes, downtrending Likely in the setting of overweight status/MASLD versus volume reduction, low perfusion and inflammation CT Abd/P as above Plan: Continue to monitor liver function Will consider hepatitis panel #Polycythemia, resolved Hemoglobin 16.7 on presentation, likely secondary to dehydration Hgb downtrended to 13.8 Plan: Will continue to monitor #Supratherapeutic INR #Pulmonary embolism w/ IVC filter, by history INR 3.9 on presentation Plan: Hold home medication, Coumadin 3 mg daily Follow coagulation panel daily Goal INR between 2-3 ideally 2.5 Consider removal of IVC filter post discharge #Brain tumor s/p resection #CAD, by history #Gout, by history #Seizures, by history Patient's neurologist Dr. Narayanan Plan: Continue home medication of Atorvastatin 20 mg HS Continue home dose medication of keppra and Mirtazapine Continue home dose allopurinol Hospital Management: DVT prophylaxis: SCDs, supratherapeutic resume warfarin when INR stable GI prophylaxis: Not indicated Diet: Renal diet Bowel: Senna as needed Lines: Peripheral IV Code status: Full code Patient seen and assessed with attending Dr. Royal Blanco, PGY-1
--- NOTE | 2025-03-07 12:10 | PD.NEPHCONS ---
Documented by User: Aaron White MD 03/08/25 17:10 History of Present Illness Data of Consult Requesting Physician: Mitchel Gant MD Primary Care Provider: Physician No Primary/Family Consult Narrative cc:: cc: Mitchel Gant MD Meds Home Medications and Allergies Home Medications ?Medication ?Instructions ?Recorded ?Confirmed ?Type potassium chloride 20 mEq 20 meq PO .QD SUPPLEMENT #0 tabs 01/28/15 03/07/25 History tablet,extended release(part/cryst) levetiracetam 1,000 mg tablet 1,000 mg PO BID Seizures #0 tabs 06/07/15 03/07/25 History (Keppra) warfarin 3 mg tablet (Coumadin) 3 mg PO DAILY Blood Thinner #0 tabs 10/08/15 03/07/25 History allopurinol 300 mg tablet 300 mg PO QDAY #0 tabs 04/11/16 03/07/25 History (Zyloprim) atorvastatin 20 mg tablet 20 mg PO QPM 08/18/24 03/07/25 History desmopressin 0.1 mg tablet 0.4 mg PO TID 08/18/24 03/07/25 History mirtazapine 30 mg tablet 30 mg PO HS 08/18/24 03/07/25 History Allergies Allergy/AdvReac Type Severity Reaction Status Date / Time No Known Allergies Allergy Verified 03/06/25 22:31 Exam Vital Signs Temp Pulse Resp BP Pulse Ox O2 Del Method 36.7 C 91 18 116/89 H 97 Room Air 03/07/25 08:21 03/07/25 08:21 03/07/25 08:21 03/07/25 08:21 03/07/25 08:21 03/07/25 08:21 Results Labs 03/08/25 05:28 03/08/25 05:28 Labs: Short CBC 03/06/25 03/07/25 Range/Units 19:28 05:19 WBC 9.2 8.2 (3.8-10.6) Thou/mm3 Hgb 16.7 H 13.8 D (13.5-16.0) g/dL Hct 47.2 39.2 L (41.0-53.0) % Plt Count 174 142 D (140-440) Thou/mm3 BMP 03/06/25 03/06/25 03/07/25 00:15 19:28 04:17 Sodium 158 H 155 H 156 H Potassium 3.6 3.4 Chloride 124 H* 125 H* Carbon Dioxide 22.7 21.3 BUN 22 22 Creatinine 1.3 1.6 H Glucose 91 97 Calcium 7.9 L 9.0 03/07/25 03/07/25 05:19 08:00 Sodium 155 H 154 H Potassium 3.5 Chloride 122 H* Carbon Dioxide 22.8 BUN 20 Creatinine 1.3 Glucose 123 H Calcium 7.7 L Liver Function 03/06/25 03/07/25 Range/Units 19:28 05:19 Total Bilirubin 0.6 0.9 (0.3-1.2) mg/dL AST 36 H 28 (0-34) U/L ALT 85 H 68 H (10-49) U/L Alkaline Phosphatase 80 63 D (46-116) U/L Albumin 4.8 3.7 D (3.5-5.0) gm/dL Urine 03/06/25 Range/Units 22:30 Urine Color Yellow (Lt Yel-Yel) Urine Clarity Clear (Clear/Hazy) Urine pH 6.0 (5.0-7.0) Ur Specific [place] 1.046 H (1.001-1.035) Urine Protein 1+ A (Neg - Trace) Urine Glucose (UA) Negative (Negative) Assessment & Plan Assessment and plan (1) Hyperosmolality with hypernatremia: Status: Acute (2) Acute renal insufficiency: Status: Acute Additional Assessment & Plan Additional Plan: Thank you for allowing us to participate in the care of this patient. Plan of care discussed with attending Dr. White. Timbo Cooper MD PGY?1 Patient seen and examined with resident physician Dr. Kowalski. Note reviewed, agree with findings and recommendations. Continue with IVF. Documented by User: Timbo Cooper MD 03/08/25 14:56 History of Present Illness Data of Consult Consult date: 03/07/25 Consult Narrative Reason for consult: Hypernatremia History of present illness: Mr Simon is a 30-year-old male with past medical history of brain tumor s/p resection complicated with diabetes insipidus on desmopressin, previous PE 3 to 4 years ago on warfarin and status post IVC filter, Hx of seizures, GERD, hypertension presented to the ED on 03/06/2025 with chief complaint of 4-day history of diarrhea without blood, foul-smelling, mostly watery in consistency around more than 7-10 bowel movements in a day. He denied any fever/chills, abdominal discomfort, nausea, vomiting, headache or lightheadedness or burning in the urine. Diarrhea is not related to food intake. He has been not drinking enough water as well. He usually have a lot of urine output however has been having decreased urine output lately. Yesterday, he saw his primary care doctor who started him on azithromycin which he took 2 pills. However due to uncontrolled mucus stools patient came to the ER with her mother on the bedside. He reported to feel tired and fatigued out today. Patient denies any other complaints of chest pain palpitations shortness of breath and headache Vitals showed stable blood pressure and he was afebrile saturating well on room air. Labs were significant for erythrocytosis hemoglobin 16.7 stable white count. CHEM panel revealed chronic hypernatremia with sodium 155, chloride 125 mild hypokalemia potassium 3.4, mild STACEY BUN 22 creatinine 1.6 GFR 58 with baseline creatinine 1.2 from September 2024. Osmolality 310. Mildly elevated liver enzymes AST 36 and ALT 85. Nephrology consulted for management of hypernatremia. Patient seen and examined at bedside, resting comfortably. Denies fever, chills, chest pain, nausea, vomiting, abdominal pain, headache. Patient given D5W with frequent sodium checks and low sodium diet. Review of Systems Review of Systems Systems Reviewed: All systems reviewed, normal except as documented Past Medical History Past Medical History Comments PMH COMMENT: PMH: History of brain tumor, seizures, hypertension, GERD, PE SX: Tumor resection, thrombectomy SH: Denies smoking, drinking alcohol. No history of illicit drug use Allergies: NKDA Home medications: Keppra 1 g twice daily, allopurinol 300 mg once daily, desmopressin 0.4 mg 3 times a day, potassium 20 mEq, atorvastatin 20 mg and warfarin 3 mg daily Meds Home Medications and Allergies Home Medications ?Medication ?Instructions ?Recorded ?Confirmed ?Type potassium chloride 20 mEq 20 meq PO .QD SUPPLEMENT #0 tabs 01/28/15 03/07/25 History tablet,extended release(part/cryst) levetiracetam 1,000 mg tablet 1,000 mg PO BID Seizures #0 tabs 06/07/15 03/07/25 History (Keppra) warfarin 3 mg tablet (Coumadin) 3 mg PO DAILY Blood Thinner #0 tabs 10/08/15 03/07/25 History allopurinol 300 mg tablet 300 mg PO QDAY #0 tabs 04/11/16 03/07/25 History (Zyloprim) atorvastatin 20 mg tablet 20 mg PO QPM 08/18/24 03/07/25 History desmopressin 0.1 mg tablet 0.4 mg PO TID 08/18/24 03/07/25 History mirtazapine 30 mg tablet 30 mg PO HS 08/18/24 03/07/25 History Allergies Allergy/AdvReac Type Severity Reaction Status Date / Time No Known Allergies Allergy Verified 03/06/25 22:31 Exam Narrative Exam PE: Gen: Well-developed and well-nourished. HEENT: NCAT, PERRLA, EOMI, MMM, anicteric conjunctivae. CVS: normal S1 and S2. RRR. No M/R/G. Resp: CTA B/L. No rhonchi, rales, crackles or wheezing. Abd: soft, non-tender, non-distended. BS+ in all 4 quadrants. MSK: Good ROM in BUE & BLE. No edema or rash. Neuro: CN II-XII grossly intact. Strength 5/5 in BUE & BLE. Alert and oriented x3. Psych: appropriate mood and affect. Results Labs 03/08/25 05:28 03/08/25 05:28 Assessment & Plan Assessment and plan (1) Hyperosmolality with hypernatremia: Status: Acute Assessment and plan: Patient presented with hyperosmolar hypernatremia in the setting of frequent diarrhea with poor water intake. Patient takes desmopressin due to diabetes insipidus. Patient is currently asymptomatic. Sodium 155, osmolarity 310. - D5W - Every 4 hours sodium checks - Resume home desmopressin - Urine electrolytes (2) Acute renal insufficiency: Status: Acute Assessment and plan: Patient is mild STACEY on presentation: BUN 22, creatinine 1.6, EGFR 58. Likely due to dehydration in the setting of diarrhea with poor water intake. - Rehydrate as above - Monitor daily labs - Avoid nephrotoxins - Renally dose medications Additional Assessment & Plan Additional Plan: Thank you for allowing us to participate in the care of this patient. Plan of care discussed with attending Dr. White. Timbo Cooper MD PGY?1
[2025-03-07 12:34] LABS: Sodium 153 mMol/L (136-145)
[2025-03-07 16:12] LABS: Sodium 151 mMol/L (136-145)
[2025-03-07] MEDS: ATORVASTATIN CALCIUM 20 MG TABLET PO (21:00)
[2025-03-07] MEDS: MIRTAZAPINE 15 MG TABLET 30 MG PO (21:00)
[2025-03-08] VITALS: BP 105/74; PULSE 69; PULSE 77; RESP 16; TEMP 36.5; O2SAT 99
[2025-03-08] MEDS: POTASSIUM CHLORIDE 20 mEq TABCR 40 MEQ PO ×2 (00:50→08:14)
[2025-03-08] MEDS: DEXTROSE 5%-WATER 1,000 ML 200 ML IV ×2 (01:44→05:40)
[2025-03-08 04:00] VITALS: BP 117/86; PULSE 73; PULSE 76; RESP 12; TEMP 36.2; O2SAT 99
[2025-03-08] MEDS: DESMOPRESSIN ACETATE 0.1 MG TABLET PO ×2 (05:40→14:23)
[2025-03-08 05:50] VITALS: BMI 29.8
[2025-03-08 06:15] LABS: Basophils % (Auto) 0 % (0-2.5); Eosinophils # (Auto) 0.1 Thou/mm3 (0.0-0.5); Eosinophils % (Auto) 1 % (0-10); Hematocrit 38.7 % (41.0-53.0); Immature Granulocytes % (Auto) 1 % (0-0); Immature Granulocytes Auto 0.09 Thou/mm3 (0.00-0.00); Lymphocytes # (Auto) 2.3 Thou/mm3 (1.0-4.8); Lymphocytes % (Auto) 25 % (10-50); Mean Corpuscular HGB Conc 36.2 g/dl (31.0-37.0); Mean Corpuscular Hemoglobin 30.4 pg (25.0-35.0); Mean Corpuscular Volume 84 fL (80-100); Monocytes # (Auto) 0.5 Thou/mm3 (0.0-0.8); Monocytes % (Auto) 5 % (0-12); Neutrophils # (Auto) 6.1 Thou/mm3 (1.8-7.7); Neutrophils % (Auto) 67 % (37-80); Nucleated Red Blood Cell % 0 /100 WBC (0); Platelet Count 142 Thou/mm3 (140-440); RDW Standard Deviation 37.7 fL (35.1-43.9); Red Blood Count 4.61 Miln/mm3 (4.50-5.90); White Blood Count 9.1 Thou/mm3 (3.8-10.6)
[2025-03-08 06:24] LABS: INR 3.4 (0.9-1.3)
[2025-03-08 06:27] LABS: Prothrombin Time 34.3 Seconds (9.0-12.2)
[2025-03-08 06:53] LABS: Alanine Aminotransferase 59 U/L (10-49); Albumin, Serum 3.5 gm/dL (3.5-5.0); Albumin/Globulin Ratio 1.4 (1.2-2.2); Alkaline Phosphatase 65 U/L (46-116); Anion Gap 9 (7-16); Aspartate Amino Transferase 25 U/L (0-34); BUN/Creatinine Ratio 10 Ratio (12-20); Bilirubin,Total 0.8 mg/dL (0.3-1.2); Blood Urea Nitrogen 8 mg/dL (9-23); Calcium 7.2 mg/dL (8.3-10.6); Calcium (Corrected) 7.6 mg/dL (8.5-10.1); Carbon Dioxide 26.6 mMol/L (20.0-31.0); Chloride 104 mMol/L (98-107); Creatinine (Component) 0.8 mg/dL (0.6-1.3); Estimated Creatinine Clearance 152.9 mL/min (>60); Globulin 2.5 gm/dL (2.3-3.5); Glucose 121 mg/dL (74-106); Magnesium 1.8 mg/dL (1.6-2.6); Osmolality,Calculated 278 (275-295); Phosphorous 2.5 mg/dL (2.4-5.1); Potassium 2.9 mMol/L (3.4-5.1); Sodium 140 mMol/L (136-145); eGFR > 60 See Note
[2025-03-08 08:00] VITALS: BP 118/86; PULSE 89; RESP 17; TEMP 36.2; O2SAT 97
[2025-03-08] MEDS: POTASSIUM CHL 10 mEq IVPB 10 MEQ/100 ML BAG 100 MEQ IV ×2 (08:13→09:05)
[2025-03-08] MEDS: allopurinoL 100 MG TABLET 300 MG PO (08:14)
[2025-03-08] MEDS: CALCIUM CARBONATE 600 MG TABLET PO (08:14)
[2025-03-08] MEDS: levETIRAcetam 250 MG TABLET 1000 MG PO (08:25)
[2025-03-08] MEDS: POTASSIUM CHL 10 mEq IVPB 10 MEQ/100 ML BAG 75 MEQ IV ×2 (10:23→12:04)
--- NOTE | 2025-03-08 11:47 | PC.SS ---
Patient is alert/oriented. Patient was able to verify demographics. Patient was admitted for hypernatremia. Patient states he resides with his parents. Patient states he's independent with ADL's. Patient has hx: brain tumor and diabetes. He does not use a glucometer machine at home. He has no problems receiving his diabetic medications. Pharmacy: [facility]. PCP: Arabella Gomez NP @ [facility]. D/c plan is to return home. Mother, Vicki, is the alt medical decision maker.
[2025-03-08 12:00] VITALS: BP 111/78; PULSE 81; PULSE 82; RESP 17; TEMP 36.1; O2SAT 98
--- NOTE | 2025-03-08 14:40 | ESDS_ITS ---
Planned Discharge Date 03/08/25 DS: Providers Provider Date of admission: 03/06/25 23:20 Primary care physician: Physician No Primary/Family Admitting Provider: Mitchel Gant MD Attending Provider on Admission: Mitchel Gant MD Consults: 03/06/25 23:23 Consult to Nephrology Routine Comment: Hypernatremia Consulting Provider: Aaron White Attending Provider on DC: Yoan Blanco MD Discharging Provider: Yoan Blanco MD DS: Diagnosis Problem List Completed Was Problem List Reviewed/Reconciled?: Yes Hospital Course Hospital Course Hospital course: 30-year-old male with past medical history of brain tumor s/p resection complicated with diabetes insipidus on desmopressin, previous PE on warfarin and IVC filter, history of seizure, GERD, hypertension presented to the ED on 03/06 with chief complaint of 4-day of history of diarrhea. In the ED, patient was found to have hyponatremia with a sodium 155, STACEY with a creatinine 1.6 and elevated liver enzymes. Patient was admitted and started on IV fluids with close monitoring of sodium levels. Stool cultures and studies were ordered; however, patient subsided to have any diarrhea during hospital stay. Nephrology was consulted for recommendations. Patient's kidney function along with sodium levels improved and now is back to baseline. CT abdomen pelvis which was ordered did not show any active signs of disease or concerning findings. Please continue taking all your home medications as prescribed Stop taking azithromycin (antibiotic) Follow-up with your PCP within 1 week after discharge; ask for a follow-up blood work If your symptoms worsen or if you develop new weakness, dizziness, chest pain or shortness of breath - please come back to the ED immediately. Hospital Diagnosis: #Hypovolemic hypernatremia #Acute kidney injury #Diabetes insipidus on desmopressin #Diarrhea, resolved #Elevated liver enzymes, downtrending #Polycythemia, resolved #Supratherapeutic INR #Pulmonary embolism w/ IVC filter, by history #Brain tumor s/p resection #CAD, by history #Gout, by history #Seizures, by history Yoan Blanco, PGY-1 Status at Discharge Overall status at discharge: patient is progressing back to baseline Time Spent with Patient Time attestation: Total time spent providing and/or coordinating discharge services: 45 minutes Time spent: Greater than 30 minutes Exam Vital Signs Temp Pulse Resp BP Pulse Ox O2 Del Method 97.0 F 82 17 111/78 98 Room Air 03/08/25 12:00 03/08/25 12:00 03/08/25 12:00 03/08/25 12:00 03/08/25 12:00 03/08/25 12:00 Narrative Exam Physical Exam: GENERAL: Awake, answering questions appropriately, appears stated age, overweight HEENT: NC/AT. Moist mucosa. PERRLA/EOMI. CARDIO: Heart RRR, no obvious murmurs, no JVD. PULM: No coughing or visible SOB. Lungs CTA B/L. GI: Abdomen soft, NT/ND, +BS. SKIN/MSK/EXT: No wounds/discoloration/rashes/edema/amputations. +Pedal pulses present B/L. NEURO: Oriented x3, Moves extremities x4, no focal neurologic deficits noted. Discharge Plan Plan Patient Disposition: HOME (Self Care) Care Plan Goals: Please continue taking all your home medications as prescribed Stop taking azithromycin (antibiotic) Follow-up with your PCP within 1 week after discharge; ask for a follow-up blood work If your symptoms worsen or if you develop new weakness, dizziness, chest pain or shortness of breath - please come back to the ED immediately. Prescriptions/Referrals Prescriptions/Med Rec: Continued potassium chloride 20 MEQ tablet,ER particles/crystals 20 meq PO .QD Qty: 0 levetiracetam [Keppra] 1,000 MG tablet 1,000 mg PO BID Qty: 0 warfarin [Coumadin] 3 MG tablet 3 mg PO DAILY Qty: 0 allopurinol [Zyloprim] 300 MG tablet 300 mg PO QDAY Qty: 0 desmopressin 0.1 mg tablet 0.4 mg PO TID Patient Comments: TAKE 4 TABLETS BY MOUTH 3 TIMES A DAY mirtazapine 30 mg tablet 30 mg PO HS atorvastatin 20 mg tablet 20 mg PO QPM Patient Comments: TAKE 1 TABLET BY MOUTH EVERYDAY AT BEDTIME Discontinued azithromycin 500 mg tablet 500 mg PO QDAY Patient Comments: 3 more days left Referrals: No Primary/Family,Physician [Primary Care Provider] - Patient/Caregiver Discharge Instructions Education Materials: Hypernatremia Dc, ED Dehydration (Adult) Print Language: Tamazight Stand Alone Forms: Qing Award Info., Patient Portal Info Letter Discharge Order Discharge Orders: Discharge (Routine); Ordered 03/08/25 Ordered By: Yoan Blanco Quality Discharge Quality Measures VTE prophylaxis
--- NOTE | 2025-03-08 14:57 | PD.RESPRO ---
Documentation for date of: 03/08/25 Subjective Subjective Interval history: Mr Simon is a 30-year-old male with past medical history of brain tumor s/p resection complicated with diabetes insipidus on desmopressin, previous PE 3 to 4 years ago on warfarin and status post IVC filter, Hx of seizures, GERD, hypertension presented to the ED on 03/06/2025 with chief complaint of 4-day history of diarrhea without blood, foul-smelling, mostly watery in consistency around more than 7-10 bowel movements in a day. He denied any fever/chills, abdominal discomfort, nausea, vomiting, headache or lightheadedness or burning in the urine. Diarrhea is not related to food intake. He has been not drinking enough water as well. He usually have a lot of urine output however has been having decreased urine output lately. Yesterday, he saw his primary care doctor who started him on azithromycin which he took 2 pills. However due to uncontrolled mucus stools patient came to the ER with her mother on the bedside. He reported to feel tired and fatigued out today. Patient denies any other complaints of chest pain palpitations shortness of breath and headache Vitals showed stable blood pressure and he was afebrile saturating well on room air. Labs were significant for erythrocytosis hemoglobin 16.7 stable white count. CHEM panel revealed chronic hypernatremia with sodium 155, chloride 125 mild hypokalemia potassium 3.4, mild STACEY BUN 22 creatinine 1.6 GFR 58 with baseline creatinine 1.2 from September 2024. Osmolality 310. Mildly elevated liver enzymes AST 36 and ALT 85. Nephrology consulted for management of hypernatremia. Patient seen and examined at bedside, resting comfortably. Denies fever, chills, chest pain, nausea, vomiting, abdominal pain, headache. Patient given D5W with frequent sodium checks and low sodium diet. 03/08/2025: Patient seen and examined at bedside, resting comfortably. Patient denies fever, chills, chest pain, nausea, vomiting. Patient had 4.6 L fluid intake, 0.8 L urine output. Sodium decreased to 140. Potassium low at 2.9, repleted. BUN 8, creatinine 0.8, EGFR 60, STACEY resolved. Recommend to complete last bag of D5W to ensure good hydration, and discharge later this afternoon. Exam Vital Signs Temp Pulse Resp BP Pulse Ox O2 Del Method 97.0 F 82 17 111/78 98 Room Air 03/08/25 12:00 03/08/25 12:00 03/08/25 12:00 03/08/25 12:00 03/08/25 12:00 03/08/25 12:00 Narrative Exam PE: Gen: Well-developed and well-nourished. HEENT: NCAT, PERRLA, EOMI, MMM, anicteric conjunctivae. CVS: normal S1 and S2. RRR. No M/R/G. Resp: CTA B/L. No rhonchi, rales, crackles or wheezing. Abd: soft, non-tender, non-distended. MSK: Good ROM in BUE & BLE. No edema or rash. Neuro: CN II-XII grossly intact. Strength 5/5 in BUE & BLE. Alert and oriented x3. Psych: appropriate mood and affect. Objective Labs 03/08/25 05:28 03/08/25 05:28 Labs: Laboratory Results - last 24 hr 03/07/25 03/08/25 15:53 05:28 WBC 9.1 RBC 4.61 Hgb 14.0 Hct 38.7 L MCV 84 MCH 30.4 MCHC 36.2 RDW Std Deviation 37.7 Plt Count 142 Neut % (Auto) 67 Lymph % (Auto) 25 Prentiss % (Auto) 5 Eos % (Auto) 1 Baso % (Auto) 0 Neut # (Auto) 6.1 Lymph # (Auto) 2.3 Prentiss # (Auto) 0.5 Eos # (Auto) 0.1 Baso # (Auto) 0.0 Immature Gran # (Auto) 0.09 H Absolute Nucleated RBC 0.00 Immature Gran % 1 H Nucleated RBC % 0 PT 34.3 H* D INR 3.4 H Sodium 151 H 140 D Potassium 2.9 L D Chloride 104 Carbon Dioxide 26.6 Anion Gap 9 BUN 8 L Creatinine 0.8 D Estim Creat Clear Calc 152.9 eGFR > 60 BUN/Creatinine Ratio 10 L Glucose 121 H Calculated Osmolality 278 Calcium 7.2 L Corrected Calcium 7.6 L Phosphorus 2.5 Magnesium 1.8 Total Bilirubin 0.8 AST 25 ALT 59 H Alkaline Phosphatase 65 Total Protein 6.0 Albumin 3.5 Globulin 2.5 Albumin/Globulin Ratio 1.4 Quality Measures Quality Measures VTE prophylaxis Assessment & Plan Assessment Current Active Medications: Generic Name Dose Route Start Last Admin Trade Name Freq PRN Reason Stop Dose Admin Acetaminophen 650 mg 03/06/25 23:20 Acetaminophen 325 Mg Tablet PO 04/05/25 23:19 Q6H PRN Pain (1-3) & Fever >101.5 Allopurinol 300 mg 03/07/25 09:00 03/08/25 08:14 Allopurinol 100 Mg Tablet PO 04/06/25 08:59 300 mg QDAY BHARAT Administration Atorvastatin Calcium 20 mg 03/07/25 21:00 03/07/25 21:00 Atorvastatin Calcium 20 Mg Tablet PO 04/06/25 20:59 20 mg HS BHARAT Administration Calcium Carbonate 600 mg 03/07/25 09:00 03/08/25 08:14 Calcium Carbonate 600 Mg Tablet PO 04/06/25 08:59 600 mg QDAY BHARAT Administration Desmopressin Acetate 0 ea 03/07/25 09:45 03/08/25 14:23 0.1 Mg Tablet PO 04/06/25 09:44 4 tablet TID BHARAT Administration Levetiracetam 1,000 mg 03/06/25 23:30 03/08/25 08:25 Levetiracetam 250 Mg Tablet PO 04/05/25 23:29 1,000 mg BID BHARAT Administration Mirtazapine 30 mg 03/07/25 21:00 03/07/25 21:00 Mirtazapine 15 Mg Tablet PO 04/06/25 20:59 30 mg HS BHARAT Administration Ondansetron HCl 4 mg 03/06/25 23:20 Ondansetron Inj 2 Mg/Ml Inj 2 Ml IV 04/05/25 23:19 Q6H PRN NAUSEA OR VOMITING Protocol Sennosides 1 tab 03/06/25 23:20 Senna Tablet PO 04/05/25 23:19 QDAY PRN constipation Protocol Plan 30-year-old male with past medical history of brain tumor s/p resection complicated with diabetes insipidus on desmopressin, previous PE 3 to 4 years ago on warfarin and status post IVC filter, Hx of seizures, GERD, hypertension presented to the ED on 03/06/2025 with chief complaint of 4-day history of diarrhea without blood foul-smelling mostly watery in consistency around more than 7-10 bowel movements in a day. Patient admitted to hospital for further management of hyponatremia. #Hypovolemic hypernatremia #Acute kidney injury #Diabetes insipidus on desmopressin Patient has a history of diabetes insipidus, on desmopressin. Has had diarrhea for past several days with poor oral hydration. Presented with hypernatremia sodium 155, chloride 125 on presentation, free water deficit total 6.1 L, goal correction of 3.9 L in 24 hours with goal sodium of 145. Patient was given 1 L LR bolus in ED. On presentation BUN 22, creatinine 1.6, GFR 58 does have mild STACEY. Urine electrolyte studies show extrarenal loss likely secondary to diarrhea as urine sodium is less than 15mmol/L. The following day patient sodium level 140. Creatinine and eGFR WNL, STACEY resolved. -Continue D5W at 200 cc/h until current bag is completed. -Sodium every 4 hours -Continue home dose desmopressin 0.4 mg 3 times daily -Low-sodium diet - Likely discharge later today #Diarrhea #Elevated liver enzymes, downtrending #Polycythemia, resolved #Supratherapeutic INR #Pulmonary embolism w/ IVC filter, by history #Brain tumor s/p resection #CAD, by history #Gout, by history #Seizures, by history DVT prophylaxis: SCDs, supratherapeutic resume warfarin when INR stable GI prophylaxis: Not indicated Diet: Renal diet Bowel: Senna as needed Lines: Peripheral IV Code status: Full code Thank you for allowing us to participate in the care of this patient. Plan of care discussed with attending Dr. White. Timbo Cooper MD PGY?1 Attending Provider Attestation/Addendum Patient seen and examined with resident physician Dr. Kowalski. Note reviewed, agree with findings and recommendations. Patient was consulted for hypernatremia, STACEY Responded well to IVF. Continue D5W No loose stools.
[2025-03-08 15:01] VITALS: BP 120/84; PULSE 88; RESP 13; TEMP 35.9; O2SAT 99
== END 2025-03-08 15:30 | disposition home or self-care (01) | DRG 644 ==
LOC: SERX 22:24 → SERHOLD 23:32 → S2NX 03-07 11:04
PROVIDERS: Physician Assistant; Student in an Organized Health Care Education/Training Program; Admitting Provider Student in an Organized Health Care Education/Training Program; Emergency Provider Emergency Medicine; Visit Provider Student in an Organized Health Care Education/Training Program
DX: E23.2 Diabetes insipidus (principal); N17.9 Acute kidney failure, unspecified; I10 Essential (primary) hypertension; K21.9 Gastro-esophageal reflux disease without esophagitis; R74.8 Abnormal levels of other serum enzymes; R19.7 Diarrhea, unspecified; R74.01 Elevation of levels of liver transaminase levels; D75.1 Secondary polycythemia; E86.0 Dehydration; R79.1 Abnormal coagulation profile; I25.10 Atherosclerotic heart disease of native coronary artery without angina pectoris; G40.909 Epilepsy, unspecified, not intractable, without status epilepticus; D49.6 Neoplasm of unspecified behavior of brain; M10.9 Gout, unspecified; Z86.711 Personal history of pulmonary embolism; E86.1 Hypovolemia; Z79.01 Long term (current) use of anticoagulants; Z79.899 Other long term (current) drug therapy; Z95.828 Presence of other vascular implants and grafts
CPT/HCPCS: 36415; 74176; 80048; 80053; 80061; 81001; 82436; 83735; 83993; 84100; 84133; 84295; 84300; 84443; 85025; 85610; 85730; 87015; 87045; 87046; 87205; 87493; 87899; 93005; 99285; J3475; J3480; J7070; J7120; A9270

== ENCOUNTER 2025-04-22 17:18 | Observation (INO) | payer OTHER, MEDICAID, SELFPAY ==
[2025-04-22 17:34] VITALS: BP 118/81; PULSE 95; RESP 18; TEMP 36.9; O2SAT 97; BMI 31.0
--- NOTE | 2025-04-22 19:47 | PD.EDRECHK ---
ED Recheck Abnl Lab Rx-RME/HPI General Chief Complaint: Recheck/Abnormal Lab/Rx Stated Complaint: Tired and Sodium is high Time Seen by Provider: 04/22/25 19:23 Arrival date/time: 04/22/25 17:18 30M with history of brain tumor s/p resection complicated with diabetes insipidus on desmopressin, previous PE 3 to 4 years ago on warfarin and status post IVC filter, seizures,GERD, and HTN presents to ED with brother because PCP states patient's sodium was high. Patient has no symptoms except he feels tired for about a week. Patient has been taking his meds. Limitations: no limitations Related Data Home Medications ?Medication ?Instructions ?Recorded ?Confirmed potassium chloride 20 mEq 20 meq PO .QD SUPPLEMENT #0 tabs 01/28/15 03/07/25 tablet,extended release(part/cryst) levetiracetam 1,000 mg tablet 1,000 mg PO BID Seizures #0 tabs 06/07/15 03/07/25 (Keppra) warfarin 3 mg tablet (Coumadin) 3 mg PO DAILY Blood Thinner #0 tabs 10/08/15 03/07/25 allopurinol 300 mg tablet 300 mg PO QDAY #0 tabs 04/11/16 03/07/25 (Zyloprim) atorvastatin 20 mg tablet 20 mg PO QPM 08/18/24 03/07/25 desmopressin 0.1 mg tablet 0.4 mg PO TID 08/18/24 03/07/25 mirtazapine 30 mg tablet 30 mg PO HS 08/18/24 03/07/25 Allergies Allergy/AdvReac Type Severity Reaction Status Date / Time No Known Allergies Allergy Verified 04/22/25 17:22 Review of Systems Review of Systems Systems Reviewed: All systems reviewed, normal except as documented Constitutional Constitutional: Reports system reviewed and no additional complaints, except as documented, Reports as per HPI, Reports fatigue, Denies fever(s) and Denies headache(s) ENT Ears, Nose, Mouth, and Throat: Denies disequilibrium and Denies headache(s) Cardiovascular Cardiovascular: Reports system reviewed and no additional complaints, except as documented, Denies chest pain and Denies dyspnea Respiratory Respiratory: Reports system reviewed and no additional complaints, except as documented, Denies cough and Denies dyspnea Gastrointestinal Gastrointestinal: Reports system reviewed and no additional complaints, except as documented, Denies abdominal pain, Denies nausea and Denies vomiting Neurologic Neurologic: Reports system reviewed and no additional complaints, except as documented, Denies confusion, Denies disequilibrium and Denies headache(s) Psychiatric Psychiatric: Denies confusion Endocrine Endocrine: Reports fatigue Past Medical History Past Medical History NEUROLOGIC: Positive Neurological Disorders, Brain Tumor (12 yrs ago, non cancerous per Father at bedside) and Seizures; Negative Cerebrovascular Accident, Transient Ischemic Attacks (TIA), Dementia, Alzheimer's Disease, Parkinson's Disease, Meningitis, Epilepsy, Multiple Sclerosis, Cerebral Palsy, Amyotrophic Lateral Sclerosis (ALS/Keiry Gehrig's), Guillain-Geneva Syndrome, Spina Bifida, Paralysis, Peripheral Neuropathy, Peter's Palsy, Subdural Hematoma, Migraine, Head Trauma, Spinal Cord Injury or Traumatic Brain Injury CARDIAC: Positive Hypercholesterolemia and Hypertension; Negative Cardiac Disorders, Myocardial Infarction, Cardiac Arrhythmia, Atrial Fibrillation, Angina, Heart Murmur, Coronary Artery Disease, Atherosclerotic Heart Disease, Peripheral Vascular Disease, Aneurysm, Congestive Heart Failure, Congenital Heart Disease, Valvular Heart Disease, Rheumatic Fever, Cardiomyopathy, Edema, Pericarditis, Cellulitis, Deep Vein Thrombosis, Hypotension or Varicose Veins RESPIRATORY: Positive Pulmonary Fibrosis; Negative Chronic Obstructive Pulmonary Disease (COPD), Asthma, Bronchitis, Emphysema, Pneumonia, Cystic Fibrosis, Tuberculosis, Pulmonary Embolism, Pulmonary Edema or Sleep Apnea GASTROINTESTINAL: Positive Gastrointestinal Disorders and Gastroesophageal Reflux Disease; Negative Hepatitis, Cirrhosis, Pancreatitis, Celiac Disease, Gall Bladder Disease, Gastrointestinal Bleed, Esophageal Varices, Willis's Esophagus, Colitis, Ulcerative Colitis, Diverticulitis, Diverticulosis, Ulcer, Colorectal Cancer, Irritable Bowel, Crohn's Disease, Obstructive Bowel, Hiatal Hernia, Hemorrhoids or Obesity GENITOURINARY: Positive Renal Disease and Kidney Stones; Negative Genitourinary Disorders, Polycystic Kidney Disease, Neurogenic Bladder, Inguinal Hernia, Dialysis, Prostate Cancer or Benign Prostatic Hyperplasia REPRODUCTIVE: Negative Breast Cancer, Fibroids, Genital Herpes, Gonorrhea, Syphilis or Testicular Cancer MUSCULOSKELETAL: Negative Musculoskeletal Disorders, Muscular Dystrophy, Myasthenia Gravis, Marfan's Syndrome, Bone Cancer, Arthritis, Rheumatoid Arthritis, Osteoporosis, Degenerative Disk Disease, Gout, Scoliosis, Carpal Tunnel Syndrome, Fibromyalgia, Fractures, Degenerative Joint Disease, Osteomyelitis or Poliovirus ENT: Negative Cataracts, Glaucoma, Blind, Retinal Detachment, Macular Degeneration, Ear Infection, Deafness, Head Trauma or Eye Prosthesis ENDOCRINE: Positive Endocrine Disorders and Diabetes Mellitus Type 2 (Diabetes insipidous); Negative Diabetes Mellitus Type 1, Hypoglycemia, Morelia's Syndrome, Dio's Disease, Hyperthyroidism, Hypothyroidism, Parathyroid Disease, Pituitary Disease, Systemic Lupus Erythematosus, Syndrome of Inappropriate Antidiuretic Hormone (SIADH), Adrenal Disease or Graves' Disease HEMATOLOGIC: Negative Blood Disorders, Anemia, Leukemia, Hemophilia, Thalassemia, Sickle Cell Disease or Clotting Problems PSYCHO/SOCIAL: Negative Psychiatric Problems, Schizophrenia, Recreational Drug Use, Bipolar Disorder, Depression, Anxiety, Behavior Problems, Self-Mutilation, Attention Deficit Disorder, Attention Deficit Hyperactivity Disorder, Depression, Post Traumatic Stress Disorder or Eating Disorder OTHER HISTORY: Positive Chemotherapy and Cancer (brain tumor); Negative Hospitalization, Autoimmune Disease, Down Syndrome, Autism, Developmental Delay, Shingles, Falls, Blood Transfusions, Blood Transfusion Reaction, Anesthesia Reactions, Organ Transplant, Radiation Therapy, Hyperbaric Therapy, MRSA, VRSA, Vancomycin-Resistant Enterococci, Human Immunodeficiency Virus (HIV), Chicken Pox, Measles, Mumps, Rubella (Bel[place]ian Measles), Pertussis, Clostridium Difficile, Breast Cancer, Colorectal Cancer, Lung Cancer, Prostate Cancer or Testicular Cancer Family History FAMILY HISTORY: Negative Family Psychiatric Problems, Family Respiratory Disorders, Family Cardiac Disorders, Family Gastrointestinal Problems, Family Cancer, Family Surgery or Family Anesthesia Reaction Surgical History SURGICAL: Negative Cardiac Surgery, Open Heart Surgery, Coronary Artery Bypass Graft, Valve Replacement, Vascular Surgery, Coronary Stent, Cardiac Catheterization, Pacemaker, Angiogram, Auto Implanted Cardiovert Defib, Carotid Endarterectomy, Endocrine Surgery, Thyroidectomy, Ear Surgery, Tympanostomy Tube, Eye Surgery, Nose Surgery, Oral Surgery, Tonsillectomy, Adenoidectomy, Cochlear Implant, Corneal Transplant, Throat Surgery, Abdominal Surgery, Tracheostomy, Gastric Bypass Surgery, Gastrostomy, Bowel Surgery, Nephrectomy, Transurethral Resection, Joint Replacement, Amputation, Open Reduction Internal Fixation, Arthroscopy, Neurologic Surgery, Brain Shunt, Mastectomy, Vasectomy or Organ Transplant Social History SMOKING STATUS: Never smoker ED Exam General Limitations: Present no limitations General appearance: Present alert and in no apparent distress Head Head exam: Present atraumatic Eye Eye exam: Present normal appearance, PERRL and EOMI ENT ENT exam: Present normal exam, normal oropharynx and mucous membranes moist Neck Neck exam: Present normal inspection, full ROM and trachea midline Chest Chest inspection: Present normal inspection and symmetric chest wall rise Respiratory Respiratory exam: Present normal lung sounds bilaterally Cardiovascular Cardiovascular exam: Present regular rate, normal rhythm and normal heart sounds Abdominal Exam Abdominal exam: Present soft and normal bowel sounds Extremities Exam Extremities exam: Present normal inspection and full ROM Back Exam Back exam: Present normal inspection and full ROM Neurological Exam Neurological exam: Present alert, oriented X3 and CN II-XII intact Psychiatric Psychiatric exam: Present normal affect and normal mood Skin Skin exam: Present warm, dry, intact and normal color Course Quality Measures none Orders Category Date Time Status COVID-19 Screening Questionnaire NOW Care 04/22/25 22:20 Active Decision to Admit X1 Care 04/22/25 22:20 Completed Insert IV NOW Care 04/22/25 19:44 Active CBC Stat Lab 04/22/25 19:52 Completed CMP [Comprehensive Metabolic Panel] Stat Lab 04/22/25 19:52 Completed Electrolytes, Urine Random Stat Lab 04/22/25 20:07 Completed INR [Prothrombin Time with INR] Stat Lab 04/22/25 19:52 Completed PTT [Partial Thromboplastin Time] Stat Lab 04/22/25 19:52 Completed Urinalysis, C/S if Indicated Stat Lab 04/22/25 20:07 Completed Dextrose 5%-Water [D5w] 500 ml Med 04/22/25 22:36 Discontinued IV 125 mls/hr Vital Signs Vital signs: Vital Signs Temperature 98.5 F 04/22/25 17:34 Pulse Rate 95 04/22/25 17:34 Respiratory Rate 18 04/22/25 17:34 Blood Pressure 118/81 04/22/25 17:34 Pulse Oximetry (%) 97 04/22/25 17:34 Oxygen Delivery Method Room Air 04/22/25 17:34 O2 at 97% on RA and WNLs Recheck / Abnormal Lab / Rx MDM Narrative MDM Narrative:: 30M with history of brain tumor s/p resection complicated with diabetes insipidus on desmopressin, previous PE 3 to 4 years ago on warfarin and status post IVC filter, seizures, GERD, and HTN presents to ED with brother because PCP states patient's sodium was high. Patient has no symptoms except he feels tired for about a week. Patient has been taking his meds. Physical exam reveals normal WOB. Patient is afebrile, calm, and alert. Gait normal. Elevated Na and Cl. Cr mildly elevated. Spoke to IM resident who reports to Dr. Jacobson, who will admit patient. Patient data External records reviewed:: [facility] previous records Clinical information provided by:: patient and family Social determinants that could affect healthcare access:: none Patient has the following chronic illnesses:: brain tumor s/p resection complicated with diabetes insipidus on desmopressin, previous PE 3 to 4 years ago on warfarin and status post IVC filter, seizures, GERD, and HTN How is presenting disease/condition affected by chronic disease/condition?: caused by Evaluation data The following diagnostics were reviewed and interpreted by me:: lab results Lab and/or radiology exams considered but not ordered:: ordered Interpretation Summary: above Medications / Prescriptions Medications or Prescriptions considered but not ordered:: ordered Medication administrations:: Medication Administration History Acetaminophen (Acetaminophen 325 Mg Tablet) 650 mg PO Q6H PRN PRN Reason: pain and Fever >100.4 Stop: 05/23/25 02:25 Allopurinol (Allopurinol 100 Mg Tablet) 300 mg PO QDAY BHARAT Stop: 05/23/25 08:59 Atorvastatin Calcium (Atorvastatin Calcium 20 Mg Tablet) 20 mg PO HS BHARAT Stop: 05/23/25 20:59 Dextrose (D5w) 1,000 mls @ 100 mls/hr IV .Q10H BHARAT Stop: 04/23/25 12:29 Levetiracetam (Levetiracetam 250 Mg Tablet) 1,000 mg PO BID BHARAT Stop: 05/23/25 08:59 Mirtazapine (Mirtazapine 15 Mg Tablet) 20 mg PO HS BHARAT Stop: 05/23/25 20:59 Ondansetron HCl (Ondansetron Inj 2 Mg/Ml Inj 2 Ml) 4 mg IVP Q6H PRN; Protocol PRN Reason: NAUSEA OR VOMITING Stop: 05/23/25 02:25 Patient Own Medication (Patient's Own Med 1 Ea Ea) 0.1 ea PO TID BHARAT Stop: 05/23/25 05:59 Warfarin Sodium (Warfarin 1 Mg Tablet) 3 mg PO QDAY@1200 BHARAT Stop: 05/07/25 11:59 Discontinued Medications Dextrose (D5w) 500 mls @ 125 mls/hr IV .Q4H ONE Stop: 04/23/25 02:35 Last Admin: 04/22/25 23:28 Dose: 125 mls/hr Documented By: CVL Pantoprazole Sodium (Pantoprazole 40 Mg Tablet) 40 mg PO X1 ONE Stop: 04/23/25 02:54 above Consultations Consultation(s) initiated? (list below): Yes Diagnosis Recheck Differential Diagnosis: encounter for medication refill, encounter for wound recheck, encounter for recheck of burn, encounter for removal of sutures, warfarin-induced coagulopathy and other (hypernatremia, hyperchloremia) Most likely diagnosis given after review of the tests above:: hypernatremia and hyperchloremia Admission Indicated Admission indicated?: indicated Admission Request Was there a request for admission?: Yes Admission Attestation Admission request attestation: Discussed case with [Dr. Jacobson] from Hospitalist service regarding admission. Discussed patients ED course, exam findings, labs, and radiology results. The Hospitalist [agrees] to accept the patient for admission. Disposition Plan Disposition Plan: Admit Discharge Plan Plan Patient Disposition: Other Care w/in Hosp ([facility]) Problem List Clinical Impression: Hyperchloremia, Acute hypernatremia
[2025-04-22 20:05] LABS: Basophils % (Auto) 0 % (0-2.5); Eosinophils # (Auto) 0.1 Thou/mm3 (0.0-0.5); Eosinophils % (Auto) 1 % (0-10); Hematocrit 45.3 % (41.0-53.0); Hemoglobin 15.8 g/dL (13.5-16.0); Immature Granulocytes % (Auto) 0 % (0-0); Immature Granulocytes Auto 0.03 Thou/mm3 (0.00-0.00); Lymphocytes # (Auto) 3.1 Thou/mm3 (1.0-4.8); Lymphocytes % (Auto) 38 % (10-50); Mean Corpuscular HGB Conc 34.9 g/dl (31.0-37.0); Mean Corpuscular Hemoglobin 30.3 pg (25.0-35.0); Mean Corpuscular Volume 87 fL (80-100); Monocytes # (Auto) 0.5 Thou/mm3 (0.0-0.8); Monocytes % (Auto) 6 % (0-12); Neutrophils # (Auto) 4.3 Thou/mm3 (1.8-7.7); Neutrophils % (Auto) 54 % (37-80); Nucleated Red Blood Cell % 0 /100 WBC (0); Platelet Count 108 Thou/mm3 (140-440); RDW Standard Deviation 44.4 fL (35.1-43.9); Red Blood Count 5.21 Miln/mm3 (4.50-5.90)
[2025-04-22 20:41] LABS: Alanine Aminotransferase 64 U/L (10-49); Albumin, Serum 4.3 gm/dL (3.5-5.0); Albumin/Globulin Ratio 1.6 (1.2-2.2); Alkaline Phosphatase 74 U/L (46-116); Anion Gap 6 (7-16); Aspartate Amino Transferase 34 U/L (0-34); BUN/Creatinine Ratio 14 Ratio (12-20); Bilirubin,Total 0.5 mg/dL (0.3-1.2); Blood Urea Nitrogen 20 mg/dL (9-23); Calcium 8.9 mg/dL (8.3-10.6); Calcium (Corrected) 8.9 mg/dL (8.5-10.1); Carbon Dioxide 27.7 mMol/L (20.0-31.0); Chloride 124 mMol/L (98-107); Creatinine (Component) 1.4 mg/dL (0.6-1.3); Estimated Creatinine Clearance 86.3 mL/min (>60); Globulin 2.7 gm/dL (2.3-3.5); Glucose 124 mg/dL (74-106); Osmolality,Calculated 316 (275-295); Potassium 3.5 mMol/L (3.4-5.1); Sodium 158 mMol/L (136-145); eGFR > 60 See Note
[2025-04-22 20:42] LABS: Collection Type, Urine Clean Catch; Squamous Epithelial Cell,Urine 0 /hpf (0-5)
[2025-04-22 20:58] LABS: Potassium,Urine Random 105 mMol/L (12-62)
[2025-04-22 21:06] LABS: Bacteria,Urine Rare; Bilirubin,Urine Negative (Negative); Blood,Urine 1+ (Negative); Clarity,Urine Clear (Clear/Hazy); Color,Urine Yellow (Lt Yel-Yel); Culture Indicated,Urine Not Indicated; Glucose, Urine Trace (Negative); Ketones,Urine Negative (Negative); Leukocyte Esterase,Urine Negative (Negative); Nitrite,Urine Negative (Negative); PH,Urine 5.5 (5.0-7.0); Protein,Urine Trace (Neg - Trace); RBC,Urine 8 /hpf (0-3); Specific Gravity,Urine 1.043 (1.001-1.035); Urobilinogen,Urine Negative mg/dL (0.0-1.0); WBC,Urine 1 /hpf (0-5)
[2025-04-22 22:25] LABS: INR 2.7 (0.9-1.3); Partial Thromboplastin Time 37.5 Seconds (22.0-36.0); Prothrombin Time 27.6 Seconds (9.0-12.2)
[2025-04-22 23:22] VITALS: BP 116/78; PULSE 78; RESP 16; TEMP 37; O2SAT 95
[2025-04-22] MEDS: DEXTROSE 5%-WATER 500 ML 125 ML IV (23:28)
[2025-04-23] VITALS (8 sets, daily range): BP systolic 105–122; BP diastolic 72–81; PULSE 74–90; RESP 16–95; TEMP 36.1–37.1; O2SAT 94–97; BMI 30.1
--- NOTE | 2025-04-23 02:32 | ESHP_ITS ---
<Statement entered by Haley Jacobson MD - 04/23/25 07:17> I Haley Jacobson MD reviewed the note and agree with the resident's assessment & plan with exceptions as below. I have personally reviewed labs, imaging, home meds/prior records, examined the patient, formulated and discussed management plan with the IM team. Patient has acquired diabetes insipidus presenting with fatigue admitted for severe electrolyte derangements including hyperchloremia and hyponatremia with sodium 158. Free water deficit around 7 L. Start with D5 at 125 mL an hour, encourage free water oral intake, resume desmopressin at home dose. Repeat renal panel every 8 hours. Will resume warfarin and antiseizure medication. Documentation for date of: 04/23/25 HPI History of Present Illness Chief complaint: Leg weakness History of present illness: 30-year-old male with past medical history of brain tumor s/p resection and complicated by diabetes insipidus on desmopressin, PE on warfarin and has an IVC filter, seizures, GERD, and gout was admitted to the hospital on 04/23/2025 for to come to the ED with complaints of weakness. On assessment patient was stating that around 3 days ago he started having lower extremity weakness, but he did not have any falls. He stated that he was feeling like his legs were giving up, but he had no difficulty moving them at all. Otherwise patient had no other complaints at this time, denied any chest pain, vomiting, diarrhea, burning sensations urination, shortness of breath, or syncopal episodes. ED course: Initially came in afebrile and normotensive. In the ED patient was noted to have hypernatremia at 158 and hyperchloremia at 124 with an STACEY with a creatinine of 1.4 and his baseline is around 0.8 from 03/2025. At this time patient will be admitted for management of his hyponatremia. PMH: As above Surgical Hx: Brain tumor resection Social Hx: Denies any smoking, alcohol, drugs Medications: Warfarin 30 mg daily, Keppra 1000 mg twice daily, atorvastatin 20 mg at bedtime, mirtazapine 20 mg at bedtime, desmopressin 0.1 mg 4 tablets 3 times daily, and allopurinol 300 mg daily. Review of Systems Review of Systems Systems Reviewed: All systems reviewed, normal except as documented Past Medical History Past Medical History NEUROLOGIC: Positive Neurological Disorders, Brain Tumor (12 yrs ago, non cancerous per Father at bedside) and Seizures; Negative Cerebrovascular Accident, Transient Ischemic Attacks (TIA), Dementia, Alzheimer's Disease, Parkinson's Disease, Meningitis, Epilepsy, Multiple Sclerosis, Cerebral Palsy, Amyotrophic Lateral Sclerosis (ALS/Keiry Gehrig's), Guillain-[place] Syndrome, Spina Bifida, Paralysis, Peripheral Neuropathy, Peter's Palsy, Subdural Hematoma, Migraine, Head Trauma, Spinal Cord Injury or Traumatic Brain Injury CARDIAC: Positive Hypercholesterolemia and Hypertension; Negative Cardiac Disorders, Myocardial Infarction, Cardiac Arrhythmia, Atrial Fibrillation, Angina, Heart Murmur, Coronary Artery Disease, Atherosclerotic Heart Disease, Peripheral Vascular Disease, Aneurysm, Congestive Heart Failure, Congenital Heart Disease, Valvular Heart Disease, Rheumatic Fever, Cardiomyopathy, Edema, Pericarditis, Cellulitis, Deep Vein Thrombosis, Hypotension or Varicose Veins RESPIRATORY: Positive Pulmonary Fibrosis; Negative Chronic Obstructive Pulmonary Disease (COPD), Asthma, Bronchitis, Emphysema, Pneumonia, Cystic Fibrosis, Tuberculosis, Pulmonary Embolism, Pulmonary Edema or Sleep Apnea GASTROINTESTINAL: Positive Gastrointestinal Disorders and Gastroesophageal Reflux Disease; Negative Hepatitis, Cirrhosis, Pancreatitis, Celiac Disease, Gall Bladder Disease, Gastrointestinal Bleed, Esophageal Varices, Willis's Esophagus, Colitis, Ulcerative Colitis, Diverticulitis, Diverticulosis, Ulcer, Colorectal Cancer, Irritable Bowel, Crohn's Disease, Obstructive Bowel, Hiatal Hernia, Hemorrhoids or Obesity GENITOURINARY: Positive Renal Disease and Kidney Stones; Negative Genitourinary Disorders, Polycystic Kidney Disease, Neurogenic Bladder, Inguinal Hernia, Dialysis, Prostate Cancer or Benign Prostatic Hyperplasia REPRODUCTIVE: Negative Breast Cancer, Fibroids, Genital Herpes, Gonorrhea, Syphilis or Testicular Cancer MUSCULOSKELETAL: Negative Musculoskeletal Disorders, Muscular Dystrophy, Myasthenia Gravis, Marfan's Syndrome, Bone Cancer, Arthritis, Rheumatoid Arthritis, Osteoporosis, Degenerative Disk Disease, Gout, Scoliosis, Carpal Tunnel Syndrome, Fibromyalgia, Fractures, Degenerative Joint Disease, Osteomyelitis or Poliovirus ENT: Negative Cataracts, Glaucoma, Blind, Retinal Detachment, Macular Degeneration, Ear Infection, Deafness, Head Trauma or Eye Prosthesis ENDOCRINE: Positive Endocrine Disorders and Diabetes Mellitus Type 2 (Diabetes insipidous); Negative Diabetes Mellitus Type 1, Hypoglycemia, Morelia's Syndrome, Clune's Disease, Hyperthyroidism, Hypothyroidism, Parathyroid Disease, Pituitary Disease, Systemic Lupus Erythematosus, Syndrome of Inappropriate Antidiuretic Hormone (SIADH), Adrenal Disease or Graves' Disease HEMATOLOGIC: Negative Blood Disorders, Anemia, Leukemia, Hemophilia, Thalassemia, Sickle Cell Disease or Clotting Problems PSYCHO/SOCIAL: Negative Psychiatric Problems, Schizophrenia, Recreational Drug Use, Bipolar Disorder, Depression, Anxiety, Behavior Problems, Self-Mutilation, Attention Deficit Disorder, Attention Deficit Hyperactivity Disorder, Depression, Post Traumatic Stress Disorder or Eating Disorder OTHER HISTORY: Positive Chemotherapy and Cancer (brain tumor); Negative Hospitalization, Autoimmune Disease, Down Syndrome, Autism, Developmental Delay, Shingles, Falls, Blood Transfusions, Blood Transfusion Reaction, Anesthesia Reactions, Organ Transplant, Radiation Therapy, Hyperbaric Therapy, MRSA, VRSA, Vancomycin-Resistant Enterococci, Human Immunodeficiency Virus (HIV), Chicken Pox, Measles, Mumps, Rubella ([place] Measles), Pertussis, Clostridium Difficile, Breast Cancer, Colorectal Cancer, Lung Cancer, Prostate Cancer or Testicular Cancer Family History FAMILY HISTORY: Negative Family Psychiatric Problems, Family Respiratory Disorders, Family Cardiac Disorders, Family Gastrointestinal Problems, Family Cancer, Family Surgery or Family Anesthesia Reaction Surgical History SURGICAL: Negative Cardiac Surgery, Open Heart Surgery, Coronary Artery Bypass Graft, Valve Replacement, Vascular Surgery, Coronary Stent, Cardiac Catheterization, Pacemaker, Angiogram, Auto Implanted Cardiovert Defib, Carotid Endarterectomy, Endocrine Surgery, Thyroidectomy, Ear Surgery, Tympanostomy Tube, Eye Surgery, Nose Surgery, Oral Surgery, Tonsillectomy, Adenoidectomy, Cochlear Implant, Corneal Transplant, Throat Surgery, Abdominal Surgery, Tracheostomy, Gastric Bypass Surgery, Gastrostomy, Bowel Surgery, Nephrectomy, Transurethral Resection, Joint Replacement, Amputation, Open Reduction Internal Fixation, Arthroscopy, Neurologic Surgery, Brain Shunt, Mastectomy, Vasectomy or Organ Transplant Social History SMOKING STATUS: Never smoker Exam Vital Signs Temp Pulse Resp BP Pulse Ox O2 Del Method 98.4 F 79 16 105/72 94 L Room Air 04/23/25 01:27 04/23/25 01:27 04/23/25 01:27 04/23/25 01:27 04/23/25 01:27 04/23/25 01:27 Narrative Exam General: A/O x3, no acute distress, well-nourished, well-developed Eyes: PERRL, EOMI. Anicteric, vision grossly intact. Ears: No ear pain, no ear discharge, Hearing grossly intact. Nose: No nasal discharge. Mouth/Throat: Moist mucous membranes, no redness, no lesions. Neck: Neck supple, non-tender, no cervical lymphadenopathy. Lungs: Clear OCTAVIA to auscultation and percussion, No accessory muscle use. Cardio: Normal S1/S2, regular rhythm, no murmurs, no JVD Abdomen: Soft, non-tender, no palpable masses, peristalsis present, no guarding or rebound. Extremities: Symmetrical, no significant deformities, no peripheral edema , non-tender, peripheral pulses presents. Skin: No rashes, no lesions, warm to touch. Neuro: No focal neurological deficits. motor and sensory intact. Strength 5/5 OCTAVIA UE and LE. Psych: Cooperative, appropriate mood and effect. Results: Labs 04/22/25 19:52 04/22/25 19:52 Labs: Short CBC 04/22/25 Range/Units 19:52 WBC 8.0 (3.8-10.6) Thou/mm3 Hgb 15.8 (13.5-16.0) g/dL Hct 45.3 (41.0-53.0) % Plt Count 108 L (140-440) Thou/mm3 BMP 04/22/25 19:52 Sodium 158 H Potassium 3.5 Chloride 124 H* Carbon Dioxide 27.7 BUN 20 Creatinine 1.4 H Glucose 124 H Calcium 8.9 Liver Function 04/22/25 Range/Units 19:52 Total Bilirubin 0.5 (0.3-1.2) mg/dL AST 34 (0-34) U/L ALT 64 H (10-49) U/L Alkaline Phosphatase 74 (46-116) U/L Albumin 4.3 (3.5-5.0) gm/dL Urine 04/22/25 Range/Units 20:07 Urine Color Yellow (Lt Yel-Yel) Urine Clarity Clear (Clear/Hazy) Urine pH 5.5 (5.0-7.0) Ur Specific [place] 1.043 H (1.001-1.035) Urine Protein Trace (Neg - Trace) Urine Glucose (UA) Trace (Negative) Quality Measures Quality Measures none Medications Home Medications and Allergies Home Medications ?Medication ?Instructions ?Recorded ?Confirmed ?Type potassium chloride 20 mEq 20 meq PO .QD SUPPLEMENT #0 tabs 01/28/03/07/25 History tablet,extended release(part/cryst) levetiracetam 1,000 mg tablet 1,000 mg PO BID Seizures #0 tabs 06/07/15 03/07/25 History (Keppra) warfarin 3 mg tablet (Coumadin) 3 mg PO DAILY Blood Th inner #0 tabs 10/08/15 03/07/25 History allopurinol 300 mg tablet 300 mg PO QDAY #0 tabs 04/1103/07/25 History (Zyloprim) atorvastatin 20 mg tablet 20 mg PO QPM 08/18/24 History desmopressin 0.1 mg tablet 0.4 mg PO TID 08/18/2402/26 History mirtazapine 30 mg tablet 30 mg PO HS 08/18/24 5 History Allergies Allergy/AdvReac Type Severity Reaction Status Date / Time No Known Allergies Allergy Verified 04/22/25 17:22 Visit Medications Acetaminophen (Acetaminophen 325 Mg Tablet) 650 mg PO Q6H PRN PRN Reason: pain and Fever >100.4 Stop: 05/23/25 02:25 Dextrose (D5w) 500 mls @ 125 mls/hr IV .Q4H ONE Stop: 04/23/25 02:35 Last Admin: 04/22/25 23:28 Dose: 125 mls/hr Dextrose (D5w) 1,000 mls @ 100 mls/hr IV .Q10H BHARAT Stop: 04/23/25 12:29 Ondansetron HCl (Ondansetron Inj 2 Mg/Ml Inj 2 Ml) 4 mg IVP Q6H PRN; Protocol PRN Reason: NAUSEA OR VOMITING Stop: 05/23/25 02:25 Assessment & Plan Plan 30-year-old male with past medical history of brain tumor s/p resection and complicated by diabetes insipidus on desmopressin, PE on warfarin and has an IVC filter, seizures, GERD, and gout was admitted to the hospital on 04/23/2025 for hypernatremia and hyperchloremia. #Hypernatremia #Hyperchloremia #Weakness #Hx of DI #Hx of brain tumor s/p resection Patient came in with complaints of lower extremity weakness since 3 days ago and was found to have a sodium of 158 and a chloride of 124. Patient states that he has been drinking water, but not a lot Otherwise patient had no other complaints at this time. There were no neurological deficits. Plan: D5W at 100 cc/h Strict LUCI's Will restart patient's home desmopressin Will continue to monitor morning labs Chronic diseases: #Hx of seizures #Hx of PE #Hx of GERD #Hx of gout Has had no breakthrough seizures in more than 1 year. Will restart patient's home medications which include warfarin 30 mg daily, Keppra 1000 mg twice daily, atorvastatin 20 mg at bedtime, mirtazapine 20 mg at bedtime, and allopurinol 300 mg daily. Disposition: Patient admitted to med surg for hyponatremia. Diet: Renal GI prophylaxis: protonix DVT prophylaxis: Warfarin Code: Full Case disclosed with Attending Dr. Kavon Walker PGY1 Disclaimer: Even though this this note was dictated by speech recognition and even though it was carefully revised there may still be minor errors in program management professional due to voice recognition software.
[2025-04-23] MEDS: PANTOPRAZOLE 40 MG TABLET PO (04:09)
[2025-04-23] MEDS: DEXTROSE 5%-WATER 1,000 ML 100 ML IV (04:10)
[2025-04-23 05:47] LABS: Basophils % (Auto) 0 % (0-2.5); Eosinophils # (Auto) 0.1 Thou/mm3 (0.0-0.5); Eosinophils % (Auto) 1 % (0-10); Hematocrit 41.5 % (41.0-53.0); Hemoglobin 14.3 g/dL (13.5-16.0); Immature Granulocytes % (Auto) 0 % (0-0); Immature Granulocytes Auto 0.02 Thou/mm3 (0.00-0.00); Lymphocytes # (Auto) 2.9 Thou/mm3 (1.0-4.8); Lymphocytes % (Auto) 40 % (10-50); Mean Corpuscular HGB Conc 34.5 g/dl (31.0-37.0); Mean Corpuscular Hemoglobin 30.2 pg (25.0-35.0); Mean Corpuscular Volume 88 fL (80-100); Monocytes # (Auto) 0.5 Thou/mm3 (0.0-0.8); Monocytes % (Auto) 7 % (0-12); Neutrophils # (Auto) 3.8 Thou/mm3 (1.8-7.7); Neutrophils % (Auto) 52 % (37-80); Nucleated Red Blood Cell % 0 /100 WBC (0); Platelet Count 91 Thou/mm3 (140-440); RDW Standard Deviation 44.5 fL (35.1-43.9); Red Blood Count 4.74 Miln/mm3 (4.50-5.90); White Blood Count 7.3 Thou/mm3 (3.8-10.6)
[2025-04-23 06:28] LABS: Alanine Aminotransferase 51 U/L (10-49); Albumin, Serum 3.6 gm/dL (3.5-5.0); Albumin/Globulin Ratio 1.5 (1.2-2.2); Alkaline Phosphatase 57 U/L (46-116); Anion Gap 8 (7-16); Aspartate Amino Transferase 30 U/L (0-34); BUN/Creatinine Ratio 15 Ratio (12-20); Bilirubin,Total 0.6 mg/dL (0.3-1.2); Blood Urea Nitrogen 17 mg/dL (9-23); Calcium 8.2 mg/dL (8.3-10.6); Calcium (Corrected) 8.5 mg/dL (8.5-10.1); Carbon Dioxide 25.9 mMol/L (20.0-31.0); Chloride 121 mMol/L (98-107); Creatinine (Component) 1.1 mg/dL (0.6-1.3); Estimated Creatinine Clearance 111.7 mL/min (>60); Globulin 2.4 gm/dL (2.3-3.5); Glucose 105 mg/dL (74-106); Osmolality,Calculated 308 (275-295); Potassium 3.4 mMol/L (3.4-5.1); Sodium 155 mMol/L (136-145); eGFR > 60 See Note
--- NOTE | 2025-04-23 09:03 | PC.SS ---
Follow up note: High sodium. On IV fluids to correct sodium.
[2025-04-23] MEDS: levETIRAcetam 250 MG TABLET 1000 MG PO ×2 (09:14→21:25)
[2025-04-23] MEDS: allopurinoL 100 MG TABLET 300 MG PO (09:14)
[2025-04-23] MEDS: DESMOPRESSIN ACETATE 0.1 MG TABLET PO ×3 (09:15→21:26)
--- NOTE | 2025-04-23 09:21 | ESPR_ITS ---
<Statement entered by Emma Paige MD - 04/27/25 08:57> I reviewed above note and agree with findings and plans. I have also personally examined the patient with medicine team and went over assessment and plan with medical team including management internship and resident physician. Documentation for date of: 04/23/25 Subjective Subjective Interval history: Patient admitted overnight for hyponatremia, home medications resumed by primary team. Patient's D5W rate was increased, sodium trended Nephrology consulted, appreciate recommendations Anticipate discharge in the next 24 hours patient sodium improved. Exam Vital Signs Temp Pulse Resp BP Pulse Ox O2 Del Method 97.2 F 89 16 118/78 96 Room Air 04/23/25 08:00 04/23/25 08:00 04/23/25 08:00 04/23/25 08:00 04/23/25 08:00 04/23/25 04:51 Narrative Exam General: A/O x3, no acute distress, well-nourished, well-developed Eyes: PERRL, EOMI. Anicteric, vision grossly intact. Ears: No ear pain, no ear discharge, Hearing grossly intact. Nose: No nasal discharge. Mouth/Throat: Moist mucous membranes, no redness, no lesions. Neck: Neck supple, non-tender, no cervical lymphadenopathy. Lungs: Clear OCTAVIA to auscultation and percussion, No accessory muscle use. Cardio: Normal S1/S2, regular rhythm, no murmurs, no JVD Abdomen: Soft, non-tender, no palpable masses, peristalsis present, no guarding or rebound. Extremities: Symmetrical, no significant deformities, no peripheral edema , non-tender, peripheral pulses presents. Skin: No rashes, no lesions, warm to touch. Neuro: No focal neurological deficits. motor and sensory intact. Strength 5/5 OCTAVIA UE and LE. Psych: Cooperative, appropriate mood and effect. Objective Labs 04/23/25 04:42 04/23/25 16:48 Labs: Laboratory Results - last 24 hr 04/22/25 04/22/25 04/23/25 19:52 20:07 04:42 WBC 8.0 7.3 RBC 5.21 4.74 Hgb 15.8 14.3 Hct 45.3 41.5 MCV 87 88 MCH 30.3 30.2 MCHC 34.9 34.5 RDW Std Deviation 44.4 H 44.5 H Plt Count 108 L 91 L Neut % (Auto) 54 52 Lymph % (Auto) 38 40 [place] % (Auto) 6 7 Eos % (Auto) 1 1 Baso % (Auto) 0 0 Neut # (Auto) 4.3 3.8 Lymph # (Auto) 3.1 2.9 [place] # (Auto) 0.5 0.5 Eos # (Auto) 0.1 0.1 Baso # (Auto) 0.0 0.0 Immature Gran # (Auto) 0.03 H 0.02 H Absolute Nucleated RBC 0.00 0.00 Immature Gran % 0 0 Nucleated RBC % 0 0 PT 27.6 H INR 2.7 H APTT 37.5 H Sodium 158 H 155 H Potassium 3.5 3.4 Chloride 124 H* 121 H* Carbon Dioxide 27.7 25.9 Anion Gap 6 L 8 BUN 20 17 Creatinine 1.4 H 1.1 Estim Creat Clear Calc 86.3 111.7 eGFR > 60 > 60 BUN/Creatinine Ratio 14 15 Glucose 124 H 105 Calculated Osmolality 316 H 308 H Calcium 8.9 8.2 L Corrected Calcium 8.9 8.5 Magnesium 2.0 Total Bilirubin 0.5 0.6 AST 34 30 ALT 64 H 51 H Alkaline Phosphatase 74 57 D Total Protein 7.0 6.0 Albumin 4.3 3.6 D Globulin 2.7 2.4 Albumin/Globulin Ratio 1.6 1.5 Ur Collection Type Clean Catch Urine Color Yellow Urine Clarity Clear Urine pH 5.5 Ur Specific [place] 1.043 H Urine Protein Trace Urine Glucose (UA) Trace Urine Ketones Negative Urine Blood 1+ A Urine Nitrite Negative Urine Bilirubin Negative Urine Urobilinogen (Auto) Negative Ur Leukocyte Esterase Negative Urine RBC 8 H Urine WBC 1 Ur Squamous Epith Cells 0 Urine Bacteria Rare Ur Culture Indicated? Not Indicated Ur Random Sodium 277.0 H Ur Random Potassium 105 H Ur Random Chloride 293.0 H Quality Measures Quality Measures none Assessment & Plan Assessment Current Active Medications: Generic Name Dose Route Start Last Admin Trade Name Freq PRN Reason Stop Dose Admin Acetaminophen 650 mg 04/23/25 02:26 Acetaminophen 325 Mg Tablet PO 05/23/25 02:25 Q6H PRN pain and Fever >100.4 Allopurinol 300 mg 04/23/25 09:00 04/23/25 09:14 Allopurinol 100 Mg Tablet PO 05/23/25 08:59 300 mg QDAY BHARAT Administration Atorvastatin Calcium 20 mg 04/23/25 21:00 Atorvastatin Calcium 20 Mg Tablet PO 05/23/25 20:59 HS BHARAT Desmopressin Acetate 0 ea 04/23/25 09:00 04/23/25 09:15 0.1 Mg Tablet PO 05/23/25 08:59 4 tablet TID BHARAT Administration Dextrose 1,000 mls @ 125 mls/hr 04/23/25 08:06 D5w IV 04/25/25 08:05 .Q8H BHARAT Levetiracetam 1,000 mg 04/23/25 09:00 04/23/25 09:14 Levetiracetam 250 Mg Tablet PO 05/23/25 08:59 1,000 mg BID BHARAT Administration Mirtazapine 30 mg 04/23/25 21:00 Mirtazapine 15 Mg Tablet PO 05/23/25 20:59 HS BHARAT Ondansetron HCl 4 mg 04/23/25 02:26 Ondansetron Inj 2 Mg/Ml Inj 2 Ml IVP 05/23/25 02:25 Q6H PRN NAUSEA OR VOMITING Protocol Warfarin Sodium 3 mg 04/23/25 12:00 Warfarin 1 Mg Tablet PO 05/07/25 11:59 QDAY@1200 BHARAT Plan 30-year-old male with past medical history of brain tumor s/p resection and complicated by diabetes insipidus on desmopressin, PE on warfarin and has an IVC filter, seizures, GERD, and gout was admitted to the hospital on 04/23/2025 for hypernatremia and hyperchloremia. #Hypernatremia #Hyperchloremia #Weakness #Hx of DI #Hx of brain tumor s/p resection Patient came in with complaints of lower extremity weakness since 3 days ago and was found to have a sodium of 158 and a chloride of 124. Patient states that he has been drinking water, but not a lot Otherwise patient had no other complaints at this time. There were no neurological deficits. Plan: D5W at 125 cc/h Strict LUCI's Will restart patient's home desmopressin Will continue to monitor morning labs Chronic diseases: #Hx of seizures #Hx of PE #Hx of GERD #Hx of gout Has had no breakthrough seizures in more than 1 year. Will restart patient's home medications which include warfarin 30 mg daily, Keppra 1000 mg twice daily, atorvastatin 20 mg at bedtime, mirtazapine 20 mg at bedtime, and allopurinol 300 mg daily. Disposition: Patient admitted to med surg for hyponatremia. Diet: Renal GI prophylaxis: protonix DVT prophylaxis: Warfarin Code: Full Case discussed with Attending Dr. Paige. Bronwyn Ramos PGY1 Disclaimer: This note was dictated by speech recognition. Minor errors in medicine aide may be present due to voice recognition software.
[2025-04-23 10:31] LABS: Sodium 151 mMol/L (136-145)
[2025-04-23] MEDS: WARFARIN 1 MG TABLET 3 MG PO (11:28)
--- NOTE | 2025-04-23 12:32 | PC.SS ---
SS met with patient regarding his d/c plan. Pt is alert/oriented. Pt was admitted for Hyperntremia and Weakness. Pt confirmed demographic and contact information is correct on facesheet. Pt resides with both parents. Pt ambulates independently without assistance or DME. Pt is ok with all ADLs. Patient?s pharmacy of choice is [facility] [email or web address]. Pt named his mom, Vicki Simon medical decision maker if he is unable. Patient?s choice is to return home upon d/c. Pt states he is not diabetic and is not on dialysis. Pt states his brother, Erwin will provide transport. Pt followed up with PCP 2 weeks ago. D/C plan: Return home Next of Kin: Vicki Simon, mom, phone# [phone] PCP: Dr. Arabella Cade from [facility] Address: Correct on facesheet
[2025-04-23] MEDS: DEXTROSE 5%-WATER 1,000 ML 125 ML IV (13:26)
--- NOTE | 2025-04-23 16:05 | PD.RESCONSUL ---
HPI Data of Consult Consult date: 04/23/25 Requesting Physician: Emma Paige MD Admitting Provider: Haley Jacobson MD Attending Provider: Emma Paige MD Primary Care Provider: Physician No Primary/Family Consult Narrative Reason for consult: Hypernatremia History of present illness: Mr. 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 The patient reported weakness starting from his lower extremity, reported feeling like he was unable to bear weight, feeling unsteady on his feet. Patient denied any recent history of diarrhea, vomiting, shortness of breath. In the ER patient was found to stable vitals, afebrile, noted hypernatremia, serum sodium 158, as well as acute kidney injury. Free water deficit calculated at 7 L, patient was started on D5W. Nephrology consulted for management of hypernatremia due to central diabetes insipidus. cc:: cc: Emma Paige MD Review of Systems Review of Systems Systems Reviewed: All systems reviewed, normal except as documented Past Medical History Past Medical History NEUROLOGIC: Positive Neurological Disorders, Brain Tumor and Seizures; Negative Cerebrovascular Accident, Transient Ischemic Attacks (TIA), Dementia, Alzheimer's Disease, Parkinson's Disease, Meningitis, Epilepsy, Multiple Sclerosis, Cerebral Palsy, Amyotrophic Lateral Sclerosis (ALS/Keiry Gehrig's), Guillain-Arnett Syndrome, Spina Bifida, Paralysis, Peripheral Neuropathy, Peter's Palsy, Subdural Hematoma, Migraine, Head Trauma, Spinal Cord Injury or Traumatic Brain Injury CARDIAC: Positive Hypercholesterolemia and Hypertension; Negative Cardiac Disorders, Myocardial Infarction, Cardiac Arrhythmia, Atrial Fibrillation, Angina, Heart Murmur, Coronary Artery Disease, Atherosclerotic Heart Disease, Peripheral Vascular Disease, Aneurysm, Congestive Heart Failure, Congenital Heart Disease, Valvular Heart Disease, Rheumatic Fever, Cardiomyopathy, Edema, Pericarditis, Cellulitis, Deep Vein Thrombosis, Hypotension or Varicose Veins RESPIRATORY: Positive Pulmonary Fibrosis; Negative Chronic Obstructive Pulmonary Disease (COPD), Asthma, Bronchitis, Emphysema, Pneumonia, Cystic Fibrosis, Tuberculosis, Pulmonary Embolism, Pulmonary Edema or Sleep Apnea GASTROINTESTINAL: Positive Gastrointestinal Disorders and Gastroesophageal Reflux Disease; Negative Hepatitis, Cirrhosis, Pancreatitis, Celiac Disease, Gall Bladder Disease, Gastrointestinal Bleed, Esophageal Varices, Willis's Esophagus, Colitis, Ulcerative Colitis, Diverticulitis, Diverticulosis, Ulcer, Colorectal Cancer, Irritable Bowel, Crohn's Disease, Obstructive Bowel, Hiatal Hernia, Hemorrhoids or Obesity GENITOURINARY: Positive Renal Disease and Kidney Stones; Negative Genitourinary Disorders, Polycystic Kidney Disease, Neurogenic Bladder, Inguinal Hernia, Dialysis, Prostate Cancer or Benign Prostatic Hyperplasia REPRODUCTIVE: Negative Breast Cancer, Fibroids, Genital Herpes, Gonorrhea, Syphilis or Testicular Cancer MUSCULOSKELETAL: Negative Musculoskeletal Disorders, Muscular Dystrophy, Myasthenia Gravis, Marfan's Syndrome, Bone Cancer, Arthritis, Rheumatoid Arthritis, Osteoporosis, Degenerative Disk Disease, Gout, Scoliosis, Carpal Tunnel Syndrome, Fibromyalgia, Fractures, Degenerative Joint Disease, Osteomyelitis or Poliovirus ENT: Negative Cataracts, Glaucoma, Blind, Retinal Detachment, Macular Degeneration, Ear Infection, Deafness, Head Trauma or Eye Prosthesis ENDOCRINE: Positive Endocrine Disorders and Diabetes Mellitus Type 2; Negative Diabetes Mellitus Type 1, Hypoglycemia, Amsterdam's Syndrome, Liberty's Disease, Hyperthyroidism, Hypothyroidism, Parathyroid Disease, Pituitary Disease, Systemic Lupus Erythematosus, Syndrome of Inappropriate Antidiuretic Hormone (SIADH), Adrenal Disease or Graves' Disease HEMATOLOGIC: Negative Blood Disorders, Anemia, Leukemia, Hemophilia, Thalassemia, Sickle Cell Disease or Clotting Problems PSYCHO/SOCIAL: Negative Psychiatric Problems, Schizophrenia, Recreational Drug Use, Bipolar Disorder, Depression, Anxiety, Behavior Problems, Self-Mutilation, Attention Deficit Disorder, Attention Deficit Hyperactivity Disorder, Depression, Post Traumatic Stress Disorder or Eating Disorder OTHER HISTORY: Positive Chemotherapy and Cancer; Negative Hospitalization, Autoimmune Disease, Down Syndrome, Autism, Developmental Delay, Shingles, Falls, Blood Transfusions, Blood Transfusion Reaction, Anesthesia Reactions, Organ Transplant, Radiation Therapy, Hyperbaric Therapy, MRSA, VRSA, Vancomycin-Resistant Enterococci, Human Immunodeficiency Virus (HIV), Chicken Pox, Measles, Mumps, Rubella (Hebrew Measles), Pertussis, Clostridium Difficile, Breast Cancer, Colorectal Cancer, Lung Cancer, Prostate Cancer or Testicular Cancer Family History FAMILY HISTORY: Negative Family Psychiatric Problems, Family Respiratory Disorders, Family Cardiac Disorders, Family Gastrointestinal Problems, Family Cancer, Family Surgery or Family Anesthesia Reaction Surgical History SURGICAL: Negative Cardiac Surgery, Open Heart Surgery, Coronary Artery Bypass Graft, Valve Replacement, Vascular Surgery, Coronary Stent, Cardiac Catheterization, Pacemaker, Angiogram, Auto Implanted Cardiovert Defib, Carotid Endarterectomy, Endocrine Surgery, Thyroidectomy, Ear Surgery, Tympanostomy Tube, Eye Surgery, Nose Surgery, Oral Surgery, Tonsillectomy, Adenoidectomy, Cochlear Implant, Corneal Transplant, Throat Surgery, Abdominal Surgery, Tracheostomy, Gastric Bypass Surgery, Gastrostomy, Bowel Surgery, Nephrectomy, Transurethral Resection, Joint Replacement, Amputation, Open Reduction Internal Fixation, Arthroscopy, Neurologic Surgery, Brain Shunt, Mastectomy, Vasectomy or Organ Transplant Social History SMOKING STATUS: Never smoker Exam Vital Signs Temp Pulse Resp BP Pulse Ox O2 Del Method 98.8 F 74 18 115/80 95 Room Air 04/23/25 12:00 04/23/25 14:07 04/23/25 14:07 04/23/25 12:04/23/25 12:04/23/25 04:51 Narrative Exam General: A/O x3, no acute distress, well-nourished, well-developed Eyes: PERRL, EOMI. Anicteric, vision grossly intact. Ears: No ear pain, no ear discharge, Hearing grossly intact. Nose: No nasal discharge. Mouth/Throat: Moist mucous membranes, no redness, no lesions. Neck: Neck supple, non-tender, no cervical lymphadenopathy. Lungs: Clear OCTAVIA to auscultation and percussion, No accessory muscle use. Cardio: Normal S1/S2, regular rhythm, no murmurs, no JVD Abdomen: Soft, non-tender, no palpable masses, peristalsis present, no guarding or rebound. Extremities: Symmetrical, no significant deformities, no peripheral edema , non-tender, peripheral pulses presents. Skin: No rashes, no lesions, warm to touch. Neuro: No focal neurological deficits. motor and sensory intact. Strength 5/5 OCTAVIA UE and LE. Psych: Cooperative, appropriate mood and effect. Results Labs 04/24/25 04:52 04/24/25 04:52 Labs: Short CBC 04/22/25 04/23/25 Range/Units 19:52 04:42 WBC 8.0 7.3 (3.8-10.6) Thou/mm3 Hgb 15.8 14.3 (13.5-16.0) g/dL Hct 45.3 41.5 (41.0-53.0) % Plt Count 108 L 91 L (140-440) Thou/mm3 BMP 04/22/25 04/23/25 04/23/25 19:52 04:42 10:00 Sodium 158 H 155 H 151 H Potassium 3.5 3.4 Chloride 124 H* 121 H* Carbon Dioxide 27.7 25.9 BUN 20 17 Creatinine 1.4 H 1.1 Glucose 124 H 105 Calcium 8.9 8.2 L Liver Function 04/22/25 04/23/25 Range/Units 19:52 04:42 Total Bilirubin 0.5 0.6 (0.3-1.2) mg/dL AST 34 30 (0-34) U/L ALT 64 H 51 H (10-49) U/L Alkaline Phosphatase 74 57 D (46-116) U/L Albumin 4.3 3.6 D (3.5-5.0) gm/dL Urine 04/22/25 Range/Units 20:07 Urine Color Yellow (Lt Yel-Yel) Urine Clarity Clear (Clear/Hazy) Urine pH 5.5 (5.0-7.0) Ur Specific [place] 1.043 H (1.001-1.035) Urine Protein Trace (Neg - Trace) Urine Glucose (UA) Trace (Negative) Quality Measures Quality Measures none Medications Home Medications and Allergies Home Medications ?Medication ?Instructions ?Recorded ?Confirmed ?Type potassium chloride 20 mEq 20 meq PO .QD SUPPLEMENT #0 tabs 01/28/15 04/23/25 History tablet,extended release(part/cryst) levetiracetam 1,000 mg tablet 1,000 mg PO BID Seizures #0 tabs 06/07/15 04/23/25 History (Keppra) warfarin 3 mg tablet (Coumadin) 3 mg PO DAILY Blood Thinner #0 tabs 10/08/15 04/23/25 History allopurinol 300 mg tablet 300 mg PO QDAY #0 tabs 04/11/16 04/23/25 History (Zyloprim) atorvastatin 20 mg tablet 20 mg PO QPM 08/18/24 04/23/25 History desmopressin 0.1 mg tablet 0.4 mg PO TID 08/18/24 04/23/25 History mirtazapine 30 mg tablet 30 mg PO HS 08/18/24 04/23/25 History Allergies Allergy/AdvReac Type Severity Reaction Status Date / Time No Known Allergies Allergy Verified 04/22/25 17:22 Visit Medications Acetaminophen (Acetaminophen 325 Mg Tablet) 650 mg PO Q6H PRN PRN Reason: pain and Fever >100.4 Stop: 05/23/25 02:25 Allopurinol (Allopurinol 100 Mg Tablet) 300 mg PO QDAY BHARAT Stop: 05/23/25 08:59 Last Admin: 04/23/25 09:14 Dose: 300 mg Atorvastatin Calcium (Atorvastatin Calcium 20 Mg Tablet) 20 mg PO HS BHARAT Stop: 05/23/25 20:59 Desmopressin Acetate (0.1 Mg Tablet) 0 ea PO TID BHARAT Stop: 05/23/25 08:59 Last Admin: 04/23/25 13:27 Dose: 4 tablet Dextrose (D5w) 1,000 mls @ 125 mls/hr IV .Q8H BHARAT Stop: 04/25/25 08:05 Last Admin: 04/23/25 13:26 Dose: 125 mls/hr Levetiracetam (Levetiracetam 250 Mg Tablet) 1,000 mg PO BID BHARAT Stop: 05/23/25 08:59 Last Admin: 04/23/25 09:14 Dose: 1,000 mg Mirtazapine (Mirtazapine 15 Mg Tablet) 30 mg PO HS BHARAT Stop: 05/23/25 20:59 Ondansetron HCl (Ondansetron Inj 2 Mg/Ml Inj 2 Ml) 4 mg IVP Q6H PRN; Protocol PRN Reason: NAUSEA OR VOMITING Stop: 05/23/25 02:25 Warfarin Sodium (Warfarin 1 Mg Tablet) 3 mg PO QDAY@1200 BHARAT Stop: 05/07/25 11:59 Last Admin: 04/23/25 11:28 Dose: 3 mg Discontinued Medications Dextrose (D5w) 500 mls @ 125 mls/hr IV .Q4H ONE Stop: 04/23/25 02:35 Last Infusion: 04/23/25 03:48 Dose: Infused Dextrose (D5w) 1,000 mls @ 100 mls/hr IV .Q10H BHARAT Stop: 04/23/25 12:29 Last Admin: 04/23/25 04:10 Dose: 100 mls/hr Pantoprazole Sodium (Pantoprazole 40 Mg Tablet) 40 mg PO X1 ONE Stop: 04/23/25 02:54 Last Admin: 04/23/25 04:09 Dose: 40 mg Patient Own Medication (Patient's Own Med 1 Ea Ea) 0.1 ea PO TID BHARAT Stop: 05/23/25 05:59 Assessment & Plan Plan Patient is a 30-year-old male with a past medical history of 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 The patient reported weakness starting from his lower extremity, reported feeling like he was unable to bear weight, feeling unsteady on his feet. Patient denied any recent history of diarrhea, vomiting, shortness of breath. In the ER patient was found to stable vitals, afebrile, noted hyponatremia, serum sodium 158, as well as acute kidney injury. Free water deficit calculated at 7 L, patient was started on D5W. Nephrology consulted for management of hypernatremia due to central diabetes insipidus. #Central diabetes insipidus #Hypernatremia Serum sodium 158, free water deficit 7 L, was started on D5W, repeat serum sodium improved to 151. Serum osmolarity 308, Urine osmolarity estimated 1200, urine sodium 277, urine potassium 105, urine chloride 293 ? Target serum sodium 148 in the first 24 hours ? Resume home dose of desmopressin 0.4mg, 4 tablets 3 times daily ? Continue D5W at 125 cc/h, ? Frequent sodium checks, monitor for sudden decrease in serum sodium. Chronic diseases: #Hx of seizures #Hx of PE #Hx of GERD #Hx of gout Management per primary team Case disclosed with Attending Dr. Simone Rea PGY2 Disclaimer: Even though this this note was dictated by speech recognition and even though it was carefully revised there may still be minor errors in dry color tester due to voice recognition software. Attending Provider Attestation/Addendum Patient seen and examined with resident physician Dr. Rea. Note reviewed, agree with findings and recommendations. Well-known to me from previous admission for central DI/hypernatremia. Discharged home on p.o. desmopressin. Did not get up for couple of days and sodium significantly increased. Will resume desmopressin and watch his serum sodium levels. Thank you Dr. Paige for allowing me to participate in the care of Mr. Simon.
[2025-04-23 17:04] LABS: Sodium 146 mMol/L (136-145)
[2025-04-23] MEDS: MIRTAZAPINE 15 MG TABLET 30 MG PO (21:25)
[2025-04-23] MEDS: ATORVASTATIN CALCIUM 20 MG TABLET PO (21:25)
[2025-04-24] VITALS: BP 110/71; PULSE 74; RESP 18; TEMP 36.3; O2SAT 99
[2025-04-24 04:00] VITALS: BP 114/67; PULSE 69; RESP 18; TEMP 36.5; O2SAT 98
[2025-04-24 05:52] LABS: Basophils % (Auto) 0 % (0-2.5); Eosinophils # (Auto) 0.1 Thou/mm3 (0.0-0.5); Eosinophils % (Auto) 2 % (0-10); Hematocrit 40.4 % (41.0-53.0); Hemoglobin 14.1 g/dL (13.5-16.0); Immature Granulocytes % (Auto) 1 % (0-0); Immature Granulocytes Auto 0.04 Thou/mm3 (0.00-0.00); Lymphocytes # (Auto) 2.6 Thou/mm3 (1.0-4.8); Lymphocytes % (Auto) 38 % (10-50); Mean Corpuscular HGB Conc 34.9 g/dl (31.0-37.0); Mean Corpuscular Hemoglobin 29.7 pg (25.0-35.0); Mean Corpuscular Volume 85 fL (80-100); Monocytes # (Auto) 0.4 Thou/mm3 (0.0-0.8); Monocytes % (Auto) 5 % (0-12); Neutrophils # (Auto) 3.8 Thou/mm3 (1.8-7.7); Neutrophils % (Auto) 55 % (37-80); Nucleated Red Blood Cell % 0 /100 WBC (0); Platelet Count 90 Thou/mm3 (140-440); RDW Standard Deviation 39.7 fL (35.1-43.9); Red Blood Count 4.74 Miln/mm3 (4.50-5.90); White Blood Count 6.9 Thou/mm3 (3.8-10.6)
[2025-04-24] MEDS: DESMOPRESSIN ACETATE 0.1 MG TABLET PO (05:57)
[2025-04-24 06:06] LABS: Partial Thromboplastin Time 39.3 Seconds (22.0-36.0)
[2025-04-24 06:13] LABS: Alanine Aminotransferase 55 U/L (10-49); Albumin, Serum 3.5 gm/dL (3.5-5.0); Albumin/Globulin Ratio 1.6 (1.2-2.2); Alkaline Phosphatase 59 U/L (46-116); Anion Gap 10 (7-16); Aspartate Amino Transferase 34 U/L (0-34); BUN/Creatinine Ratio 11 Ratio (12-20); Bilirubin,Total 0.8 mg/dL (0.3-1.2); Blood Urea Nitrogen 12 mg/dL (9-23); Calcium (Corrected) 8.4 mg/dL (8.5-10.1); Carbon Dioxide 27.9 mMol/L (20.0-31.0); Chloride 107 mMol/L (98-107); Creatinine (Component) 1.1 mg/dL (0.6-1.3); Estimated Creatinine Clearance 111.7 mL/min (>60); Globulin 2.2 gm/dL (2.3-3.5); Glucose 96 mg/dL (74-106); Osmolality,Calculated 288 (275-295); Potassium 3.4 mMol/L (3.4-5.1); Sodium 145 mMol/L (136-145); Total Protein 5.7 gm/dL (5.7-8.2); eGFR > 60 See Note
[2025-04-24 07:20] LABS: Prothrombin Time 30.3 Seconds (9.0-12.2)
[2025-04-24 07:55] VITALS: BP 109/76; PULSE 77; RESP 18; TEMP 36.3; O2SAT 98
[2025-04-24 08:20] VITALS: PULSE 105; RESP 18; RESP 98
[2025-04-24] MEDS: allopurinoL 100 MG TABLET 300 MG PO (08:33)
[2025-04-24] MEDS: levETIRAcetam 250 MG TABLET 1000 MG PO (08:34)
[2025-04-24] MEDS: POTASSIUM CHLORIDE 20 mEq TABCR 40 MEQ PO (08:34)
[2025-04-24] MEDS: Magnesium Sulfate 2 GM Ivpb 2 GM/50 ML BAG IV (08:34)
--- NOTE | 2025-04-24 12:19 | ESDS_ITS ---
<Statement entered by Emma Paige MD - 04/27/25 09:00> I reviewed above note and agree with findings and plans. I have also personally examined the patient with medicine team and went over assessment and plan with medical team including regulatory affairs internship and resident physician. Planned Discharge Date 04/24/25 DS: Providers Provider Date of admission: 04/23/25 02:26 Primary care physician: Physician No Primary/Family Admitting Provider: Haley Jacobson MD Attending Provider on Admission: Emma Paige MD Consults: 04/23/25 11:07 Consult to Nephrology Routine Comment: Hypernatremia Consulting Provider: Aaron White Attending Provider on DC: Emma Paige MD Discharging Provider: Emma Paige MD Anticipated date of discharge: 04/24/25 DS: Diagnosis Problem List Completed Was Problem List Reviewed/Reconciled?: Yes Hospital Course Hospital Course Hospital course: Hospital course: Mr. Simon is a 30-year-old male with past medical history of brain tumor s/p resection and complicated by diabetes insipidus on desmopressin, PE on warfarin and has an IVC filter, seizures, GERD, and gout was admitted to the hospital on 04/23/2025 for hypernatremia and hyperchloremia. Patient presented to the hospital with lower extremity weakness for the last 3 days, in the ED was found to have a sodium of 158 and chloride of 124, patient was started on D5W, sodium checks were made frequently every 6 hours, nephrology was consulted. Patient sodium was corrected with a goal of 8-10 in 24 hours. During hospitalization patient's home medications were resumed. With the progression of hospital course patient reported improvement of lower extremity weakness, sodium levels corrected to normal limits. Further plan is to discharge patient home and follow-up outpatient with [employer], patient to repeat BMP in 2 weeks and follow-up with nephrology. Patient to continue all home medications, instructed to maintain adequate hydration. Patient is stable for discharge and responded well to hospital treatment. Discharge diagnosis: #Hyponatremia #Hypochloremia #Right lower extremity weakness, resolved #History of central diabetes insipidus #History of brain tumor status postresection #Seizures, by history #PE by history #GERD by history #Gout by history Case discussed with Attending Dr. Paige. Bronwyn Ramos PGY1 Disclaimer: This note was dictated by speech recognition. Minor errors in towel weaver may be present due to voice recognition software. Status at Discharge Functional status at discharge: independent ambulation Overall status at discharge: patient is progressing back to baseline Time Spent with Patient Time attestation: Total time spent providing and/or coordinating discharge services: Time spent: Greater than 30 minutes Exam Vital Signs Temp Pulse Resp BP Pulse Ox O2 Del Method 97.4 F 105 H 18 109/76 98 Room Air 04/24/25 07:55 04/24/25 08:20 04/24/25 08:20 04/24/25 07:55 04/24/25 07:55 04/24/25 07:55 Narrative Exam General: A/O x3, no acute distress, well-nourished, well-developed Eyes: PERRL, EOMI. Anicteric, vision grossly intact. Ears: No ear pain, no ear discharge, Hearing grossly intact. Nose: No nasal discharge. Mouth/Throat: Moist mucous membranes, no redness, no lesions. Neck: Neck supple, non-tender, no cervical lymphadenopathy. Lungs: Clear OCTAVIA to auscultation and percussion, No accessory muscle use. Cardio: Normal S1/S2, regular rhythm, no murmurs, no JVD Abdomen: Soft, non-tender, no palpable masses, peristalsis present, no guarding or rebound. Extremities: Symmetrical, no significant deformities, no peripheral edema , non-tender, peripheral pulses presents. Skin: No rashes, no lesions, warm to touch. Neuro: No focal neurological deficits. motor and sensory intact. Strength 5/5 OCTAVIA UE and LE. Psych: Cooperative, appropriate mood and effect. Discharge Plan Plan Patient Disposition: HOME (Self Care) Patient condition on transfer: Stable Care Plan Goals: Maintain adequate hydration, follow-up outpatient with nephrology in 1-2 weeks w ith repeat BMP. Continue all other home medications, we have not made any changes to your medications. Return to emergency department if symptoms worsen Follow-up with primary care physician in 1 to 2 weeks Follow-up with neurologist in a month. Prescriptions/Referrals Prescriptions/Med Rec: Continued potassium chloride 20 MEQ tablet,ER particles/crystals 20 meq PO .QD Qty: 0 levetiracetam [Keppra] 1,000 MG tablet 1,000 mg PO BID Qty: 0 warfarin [Coumadin] 3 MG tablet 3 mg PO DAILY Qty: 0 allopurinol [Zyloprim] 300 MG tablet 300 mg PO QDAY Qty: 0 desmopressin 0.1 mg tablet 0.4 mg PO TID Patient Comments: TAKE 4 TABLETS BY MOUTH 3 TIMES A DAY mirtazapine 30 mg tablet 30 mg PO HS atorvastatin 20 mg tablet 20 mg PO QPM Patient Comments: TAKE 1 TABLET BY MOUTH EVERYDAY AT BEDTIME Referrals: No Primary/Family,Physician [Primary Care Provider] - Lucian Narayanan MD [Physician] - Aaron White MD [Physician] - Outpatient Orders (i.e. Home Health, Labs, Imaging): Basic Metabolic Panel (Routine) Timeframe: 2 Weeks Location: Determined by Patient Ordered By: Brownyn Ramos Patient/Caregiver Discharge Instructions Discharge Activity: activity as tolerated Education Materials: What Is Gout?, Dehydration, Hypernatremia Dc Print Language: Ukrainian Stand Alone Forms: Qing Award Info., Patient Portal Info Letter, Work/Release Restrictions Discharge Order Discharge Orders: Discharge (Routine); Ordered 04/24/25 Ordered By: Bronwyn Ramos Quality Discharge Quality Measures VTE prophylaxis
--- NOTE | 2025-04-24 21:29 | ESPR_ITS ---
Documentation for date of: 04/24/25 Subjective Subjective Interval history: Mr. 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 The patient reported weakness starting from his lower extremity, reported feeling like he was unable to bear weight, feeling unsteady on his feet. Patient denied any recent history of diarrhea, vomiting, shortness of breath. In the ER patient was found to stable vitals, afebrile, noted hypernatremia, serum sodium 158, as well as acute kidney injury. Free water deficit calculated at 7 L, patient was started on D5W. Nephrology consulted for management of hypernatremia due to central diabetes insipidus. 04/24/2025, patient evaluated the bedside, reported no acute complaints, serum sodium improved to 145, after resuming desmopressin. Recommended strict compliance with medications. Patient can be discharged from nephrology standpoint and follow-up with nephrology within 1 to 2 weeks. Labs show serum sodium 144, potassium 3.4, BUN 12, creatinine 1.1 Exam Vital Signs Temp Pulse Resp BP Pulse Ox O2 Del Method 97.4 F 105 H 18 109/76 98 Room Air 04/24/25 07:55 04/24/25 08:20 04/24/25 08:20 04/24/25 07:55 04/24/25 07:55 04/24/25 07:55 Narrative Exam General: A/O x3, no acute distress, well-nourished, well-developed Eyes: PERRL, EOMI. Anicteric, vision grossly intact. Ears: No ear pain, no ear discharge, Hearing grossly intact. Nose: No nasal discharge. Mouth/Throat: Moist mucous membranes, no redness, no lesions. Neck: Neck supple, non-tender, no cervical lymphadenopathy. Lungs: Clear OCTAVIA to auscultation and percussion, No accessory muscle use. Cardio: Normal S1/S2, regular rhythm, no murmurs, no JVD Abdomen: Soft, non-tender, no palpable masses, peristalsis present, no guarding or rebound. Extremities: Symmetrical, no significant deformities, no peripheral edema , non-tender, peripheral pulses presents. Skin: No rashes, no lesions, warm to touch. Neuro: No focal neurological deficits. motor and sensory intact. Strength 5/5 OCTAVIA UE and LE. Psych: Cooperative, appropriate mood and effect. Objective Labs 04/24/25 04:52 04/24/25 04:52 Labs: Laboratory Results - last 24 hr 04/24/25 04:52 WBC 6.9 RBC 4.74 Hgb 14.1 Hct 40.4 L MCV 85 MCH 29.7 MCHC 34.9 RDW Std Deviation 39.7 Plt Count 90 L Neut % (Auto) 55 Lymph % (Auto) 38 Dougherty % (Auto) 5 Eos % (Auto) 2 Baso % (Auto) 0 Neut # (Auto) 3.8 Lymph # (Auto) 2.6 Dougherty # (Auto) 0.4 Eos # (Auto) 0.1 Baso # (Auto) 0.0 Immature Gran # (Auto) 0.04 H Absolute Nucleated RBC 0.00 Immature Gran % 1 H Nucleated RBC % 0 PT 30.3 H* INR 3.0 H APTT 39.3 H Sodium 145 Potassium 3.4 Chloride 107 Carbon Dioxide 27.9 Anion Gap 10 BUN 12 Creatinine 1.1 Estim Creat Clear Calc 111.7 eGFR > 60 BUN/Creatinine Ratio 11 L Glucose 96 Calculated Osmolality 288 Calcium 8.0 L Corrected Calcium 8.4 L Magnesium 2.0 Total Bilirubin 0.8 AST 34 ALT 55 H Alkaline Phosphatase 59 Total Protein 5.7 Albumin 3.5 Globulin 2.2 L Albumin/Globulin Ratio 1.6 Quality Measures Quality Measures VTE prophylaxis Assessment & Plan Plan Patient is a 30-year-old male with a past medical history of 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 The patient reported weakness starting from his lower extremity, reported feeling like he was unable to bear weight, feeling unsteady on his feet. Patient denied any recent history of diarrhea, vomiting, shortness of breath. In the ER patient was found to stable vitals, afebrile, noted hyponatremia, serum sodium 158, as well as acute kidney injury. Free water deficit calculated at 7 L, patient was started on D5W. Nephrology consulted for management of hypernatremia due to central diabetes insipidus. #Central diabetes insipidus #Hypernatremia Serum sodium 158, free water deficit 7 L, was started on D5W, repeat serum sodium improved to 151. Serum osmolarity 308, Urine osmolarity estimated 1200, urine sodium 277, urine potassium 105, urine chloride 293 ? Target serum sodium 148 in the first 24 hours ? Resume home dose of desmopressin 0.1mg, 4 tablets 3 times daily ? Noted improvement in sodium, serum sodium this a.m. 145, patient can be discharged from nephrology standpoint on home dose of desmopressin and follow-up with nephrology within 1 to 2 weeks. Chronic diseases: #Hx of seizures #Hx of PE #Hx of GERD #Hx of gout Management per primary team Case disclosed with Attending Dr. Simone Rea PGY2 Attending Provider Attestation/Addendum Patient seen and examined with resident physician Dr. Rea. Note reviewed, agree with findings and recommendations. Well-known to me from previous admission for central DI/hypernatremia. Discharged home on p.o. desmopressin. Did not get up for couple of days and sodium significantly increased. Will resume desmopressin and watch his serum sodium levels. Sodium level much better at 145. Renal mulligan stable for discharge. Thank you Dr. Paige for allowing me to participate in the care of Mr. Simon.
== END 2025-04-24 11:47 | disposition home or self-care (01) ==
LOC: SERX 19:47 → SERHOLD 04-23 03:08 → S3SX 04-23 03:53
PROVIDERS: Physician Assistant; Admitting Provider Student in an Organized Health Care Education/Training Program; Emergency Provider Emergency Medicine; Visit Provider Internal Medicine
DX: N17.9 Acute kidney failure, unspecified (principal); Z79.01 Long term (current) use of anticoagulants; M10.9 Gout, unspecified; I10 Essential (primary) hypertension; E87.1 Hypo-osmolality and hyponatremia; E23.2 Diabetes insipidus; Z86.711 Personal history of pulmonary embolism; Z90.89 Acquired absence of other organs; Z95.0 Presence of cardiac pacemaker; Z95.5 Presence of coronary angioplasty implant and graft
CPT/HCPCS: 36415; 80053; 81001; 82436; 83735; 84133; 84295; 84300; 85025; 85610; 85730; 96360; 96361; 99285; G0378; J3475; J7060; J7070; A9270